=== PATIENT | male | born 1955 | race Caucasian/White ===

== ENCOUNTER 2016-09-20 10:47 | Inpatient (IN) ==
[~2016-09-20 10:47] MED LIST: Lidocaine -MPF 1% 5 ML AMPUL INFILT ONE; Naloxone 0.4 MG/ML INJ IVP PRN; Ondansetron 4 MG/2 ML VIAL IVP PRN
[2016-09-20] MEDS ORDERED: 0.9 % Sodium Chloride 1,000 ML IVC SCH (11:00)
[2016-09-20] MEDS ORDERED: *HR* HYDROmorphone (PF) 1 MG/ML SYRINGE IVP PRN (11:06)
[2016-09-20] MEDS ORDERED: Acetaminophen 325 MG TABLET PO PRN (11:06)
[2016-09-20] MEDS ORDERED: *HR* OxyCODONE/APAP 5/325 TABLET PO PRN (11:06)
[2016-09-20 11:53] LABS: Basophils % 0.6 %; Eosinophils # 0.1 K/mcL (0.0-0.6); Eosinophils % 2.1 %; Hematocrit 43.4 % (37.5-50.1); Hemoglobin 14.9 g/dL (12.9-16.9); Immature Granulocytes % 0.2 % (0-4); Lymphocytes # 1.3 K/mcL (0.6-4.6); Lymphocytes % 28.3 %; Mean Corpuscular HGB Conc 34.3 g/dL (31.6-35.5); Mean Corpuscular Hemoglobin 31.6 pg (28.0-33.3); Mean Corpuscular Volume 92.1 fL (83.0-100.0); Mean Platelet Volume 10.6 fL (9.4-12.4); Monocytes # 0.5 K/mcL (0.0-1.3); Monocytes % 11.4 %; Neutrophils # 2.7 K/mcL (1.6-8.9); Platelet Count 236 K/mcL (140-400); Red Blood Count 4.71 M/mcL (4.19-5.50); Red Cell Distribution Width 13.5 % (11.5-14.5); Segmented Neutrophils % 57.4 %
[2016-09-20 11:59] LABS: INR 1.1; Prothrombin Time 11.5 Seconds (9.4-12.1)
[2016-09-20 12:07] LABS: Alanine Aminotransferase 13 Units/L (0-55); Albumin 3.9 g/dL (3.5-5.0); Albumin/Globulin Ratio 1.2 (1.1-2.2); Alkaline Phosphatase 61 Units/L (38-126); Aspartate Amino Transferase 23 Units/L (5-34); BUN/Creatinine Ratio 6 (6-26); Bilirubin,Total 0.5 mg/dL (0.2-1.2); Calcium 9.5 mg/dL (8.6-10.8); Carbon Dioxide 26 mEq/L (19-29); Chloride 98 mEq/L (98-109); Globulin 3.2 g/dL (2.4-3.5); Glucose 104 mg/dL (70-99); Magnesium 2.1 mg/dL (1.6-2.6); Osmolality,Calculated 274 (280-300); Phosphorous 3.6 mg/dL (2.3-4.7); Potassium 4.7 mEq/L (3.5-4.5); Sodium 133 mEq/L (136-145); Total Protein 7.1 g/dL (6.0-8.3); eGFR For African Americans > 60 (> 60); eGFR For Non-African Americans > 60 (> 60)
[2016-09-20 12:08] LABS: Blood Urea Nitrogen 5 mg/dL (8-26)
[2016-09-20 12:38] LABS: Platelet Estimate Normal (Normal); Reactive Lymphocytes Present (Not Present)
[2016-09-20] MEDS ORDERED: D10% in Water 500 ML IVC PRN (13:06)
--- NOTE | 2016-09-20 14:23 | General Surg History&Physical ---
<Yoly Kendrick - Last Filed: 09/20/16 14:46> Date of Encounter: 09/20/16 Time of Encounter: 14:00 Assessment and Plan (1) Colonic stricture Current Visit: Yes Status: Acute The assessment and plan as outlined above was discussed with the patient and/or family members who expressed understanding and agreement. All questions were answered. Patient risks, benefits, alternatives, expected outcomes have been reviewed and he is in agreement to proceed with an open sigmoid colectomy and possible colostomy with Dr. Sanders and the next 24-48 hours. Bowel prep today- MiraLAX and Gatorade, Dulcolax, neomycin and erythromycin Clear liquid diet Nothing by mouth after midnight IV antibiotics- Cipro and Flagyl PICC line and TPN therapy initiated due to patient risk for malnutrition- he reports he has not eaten in over one week Total fluid rate with maintenance IV and TPN will be 100 mL's per hour Incentive spirometer every 1 hour while awake Repeat a.m. labs (2) Diverticular disease Current Visit: Yes Status: Acute The assessment and plan as outlined above was discussed with the patient and/or family members who expressed understanding and agreement. All questions were answered. Patient risks, benefits, alternatives, expected outcomes have been reviewed and he is in agreement to proceed with an open sigmoid colectomy and possible colostomy with Dr. Sanders and the next 24-48 hours. Bowel prep today- MiraLAX and Gatorade, Dulcolax, neomycin and erythromycin Clear liquid diet Nothing by mouth after midnight IV antibiotics- Cipro and Flagyl PICC line and TPN therapy initiated due to patient risk for malnutrition- he reports he has not eaten in over one week Total fluid rate with maintenance IV and TPN will be 100 mL's per hour Incentive spirometer every 1 hour while awake Repeat a.m. labs Qualifiers: Diverticulosis site: diverticulosis of large intestine Diverticulosis bleeding: diverticulosis without bleeding Qualified Code(s): K57.30 - Diverticulosis of large intestine without perforation or abscess without bleeding (3) GERD (gastroesophageal reflux disease) Current Visit: Yes Status: Chronic The assessment and plan as outlined above was discussed with the patient and/or family members who expressed understanding and agreement. All questions were answered. PPI therapy daily Qualifiers: Esophagitis presence: esophagitis presence not specified Qualified Code(s) : K21.9 - Gastro-esophageal reflux disease without esophagitis (4) Hypertension Current Visit: Yes Status: Chronic The assessment and plan as outlined above was discussed with the patient and/or family members who expressed understanding and agreement. All questions were answered. Resume home medication regimen We will continue to monitor and adjust as necessary Qualifiers: Hypertension type: essential hypertension Qualified Code(s): I10 - Essential (primary) hypertension (5) Restless leg syndrome Current Visit: Yes Status: Acute The assessment and plan as outlined above was discussed with the patient and/or family members who expressed understanding and agreement. All questions were answered. Resume Requip and Neurontin for symptom control (6) DVT prophylaxis Current Visit: Yes Status: Acute The assessment and plan as outlined above was discussed with the patient and/or family members who expressed understanding and agreement. All questions were answered. EPCDs to bilateral location release for DVT prophylaxis Ambulate hallways 3 times a day History of Present Illness Chief complaint: Abdominal pain HPI: Mr. Bateman is a 60 year old male with a past medical history significant for restless leg syndrome, GERD, hypertension, osteoarthritis, Hanson's esophagus, diverticular disease. He has been seen and evaluated by Dr. Sanders as an outpatient for diverticular disease. The patient was recently admitted to a hospital in [place] in July of this year for an episode of diverticulitis. He was discharged on oral antibiotics and then followed up with Dr. Sanders for surgical evaluation. He was evaluated in August of this year in the office and stated he would like to hold off on having surgery until Fall time due to his work schedule. He continued to be symptomatic with abdominal discomfort at his evaluation with Dr. Sanders. He was given oral antibiotics at that time ( Augmentin and Flagyl). The patient completed his antibiotics as instructed however he has continued to have persistent abdominal discomfort. He had a CT scan and complete and was found to have a suspected sigmoid stricture secondary to recurrent diverticulitis. The patient denies any nausea or vomiting. He reports decreased appetite and states that he has not even in 1 week. He states that he does not eat because it makes his pain in his abdomen worse. He has continued to drink liquids. He states his pain is located in his left lower quadrant. Denies any fevers or chills. He does admit to constipation. Denies any difficulty with urination. Denies any chest pain or shortness of breath. The patient has been admitted to the hospital for further workup and treatment for his colonic obstruction Past Med Surg Social Fam HX - Past Medical History Source: patient, old records reviewed Medical history: arthritis, GERD, hypertension, other (Hanson's esophagus, diverticular disease, restless leg syndrome) Psychiatric history: no psych history - Past Surgical History Surgical History: orthopedic, other (Left total shoulder replacements), other ( Ruptured disc lumbar repair in 1992 and 1995, hardware replacement and back, EGD and colonoscopy (last colonoscopy 2015)) - Social History Smoking Status: Former smoker (Quit 2 months ago) Smokeless Tobacco Status: No Alcohol use: occasionally Drug use: none Occupational status: employed Current living situation: Home - Independent Activity Level: Independent ambulation - Family History Mother Living Status: Still Living Father Living Status: Still Living Medications and Allergies metroNIDAZOLE [Flagyl] 500 mg PO TID #30 tablet 11/21/14 [Rx] Amoxicillin/Clavulanate [Augmentin] 875 mg PO BIDWM 09/20/16 [History] Gabapentin [Neurontin] 800 mg PO TID 09/20/16 [History] Lisinopril/Hydrochlorothiazide [Zestoretic 10-12.5 mg Tablet] 1 each PO DAILY [History] Omeprazole [PriLOSEC] 40 mg PO DAILY 09/20/16 [History] rOPINIRole [Requip] 1 mg PO TID 09/20/16 [History] Allergies No Known Allergies Allergy (Verified 09/20/16 11:34) Review of Systems All systems PM: reviewed and no additional remarkable complaints except as stated (in the HPI) All systems PM: A 10-system review of systems was performed and is negative for pertinent findings except as documented above in the HPI. General Surgery Exam Initial Vital Signs Temp Pulse Resp BP Pulse Ox 97.3 F L 64 16 133/88 96 09/20/16 10:52 09/20/16 10:52 09/20/16 10:52 09/20/16 10:52 09/20/16 10:52 - General physical appearance well developed, well nourished, no distress, no pain - Eyes PERRL, normal ocular movement - ENT normal mucosa, atraumatic, normocephalic - Neck trachea midline - Respiratory normal expansion, normal respiratory effort, clear to auscultation - Cardiovascular Cardiovascular exam: Present: RRR - Abdomen Abdomen general surgery: Present: bowel sounds present, soft, non tender - Neurologic Present: CN 2-12 grossly intact - Musculoskeletal Present: normal gait, normal posture - Psychiatric Psychiatric general surgery: Present: appropriate, oriented to person, oriented to place, oriented to time, speech is normal, memory intact Results - Labs 09/20/16 11:42 09/20/16 11:42 Abnormal lab results Reactive Lymphocytes Present (Not Present) A 09/20/16 11:42 Sodium 133 mEq/L (136-145) L 09/20/16 11:42 Potassium 4.7 mEq/L (3.5-4.5) H 09/20/16 11:42 BUN 5 mg/dL (8-26) L 09/20/16 11:42 Glucose 104 mg/dL (70-99) H 09/20/16 11:42 Calculated Osmolality 274 (280-300) L 09/20/16 11:42 Diabetes panel 09/20/16 Range/Units 11:42 Sodium 133 L (136-145) mEq/L Potassium 4.7 H (3.5-4.5) mEq/L Chloride 98 (98-109) mEq/L Carbon Dioxide 26 (19-29) mEq/L BUN 5 L (8-26) mg/dL Creatinine 0.82 (0.72-1.25) mg/dL Glucose 104 H (70-99) mg/dL Calcium 9.5 (8.6-10.8) mg/dL AST 23 (5-34) Units/L ALT 13 (0-55) Units/L Alkaline Phosphatase 61 (38-126) Units/L Albumin 3.9 (3.5-5.0) g/dL Calcium panel 09/20/16 Range/Units 11:42 Calcium 9.5 (8.6-10.8) mg/dL Phosphorus 3.6 (2.3-4.7) mg/dL Albumin 3.9 (3.5-5.0) g/dL Pituitary panel 09/20/16 Range/Units 11:42 Sodium 133 L (136-145) mEq/L Potassium 4.7 H (3.5-4.5) mEq/L Chloride 98 (98-109) mEq/L Carbon Dioxide 26 (19-29) mEq/L BUN 5 L (8-26) mg/dL Creatinine 0.82 (0.72-1.25) mg/dL Glucose 104 H (70-99) mg/dL Calcium 9.5 (8.6-10.8) mg/dL Adrenal panel 09/20/16 Range/Units 11:42 Sodium 133 L (136-145) mEq/L Potassium 4.7 H (3.5-4.5) mEq/L Chloride 98 (98-109) mEq/L Carbon Dioxide 26 (19-29) mEq/L BUN 5 L (8-26) mg/dL Creatinine 0.82 (0.72-1.25) mg/dL Glucose 104 H (70-99) mg/dL Calcium 9.5 (8.6-10.8) mg/dL Total Bilirubin 0.5 (0.2-1.2) mg/dL AST 23 (5-34) Units/L ALT 13 (0-55) Units/L Alkaline Phosphatase 61 (38-126) Units/L Albumin 3.9 (3.5-5.0) g/dL All other labs normal. - Attending Attestation For this encounter, I have reviewed the KNEE BOLTER or PA documentation, treatment plan, and medical decision making; and I have had face to face time with this patient. <Frances Sanders - Last Filed: 09/21/16 19:23> Date of Encounter: 09/20/16 Assessment and Plan (1) Colonic stricture Current Visit: Yes Status: Acute The assessment and plan as outlined above was discussed with the patient and/or family members who expressed understanding and agreement. All questions were answered. (2) DVT prophylaxis Current Visit: Yes Status: Acute The assessment and plan as outlined above was discussed with the patient and/or family members who expressed understanding and agreement. All questions were answered. (3) Diverticular disease Current Visit: Yes Status: Acute The assessment and plan as outlined above was discussed with the patient and/or family members who expressed understanding and agreement. All questions were answered. Qualifiers: Diverticulosis site: diverticulosis of large intestine Diverticulosis bleeding: diverticulosis without bleeding Qualified Code(s): K57.30 - Diverticulosis of large intestine without perforation or abscess without bleeding (4) Restless leg syndrome Current Visit: Yes Status: Acute The assessment and plan as outlined above was discussed with the patient and/or family members who expressed understanding and agreement. All questions were answered. (5) GERD (gastroesophageal reflux disease) Current Visit: Yes Status: Chronic The assessment and plan as outlined above was discussed with the patient and/or family members who expressed understanding and agreement. All questions were answered. Qualifiers: Esophagitis presence: esophagitis presence not specified Qualified Code(s) : K21.9 - Gastro-esophageal reflux disease without esophagitis (6) Hypertension Current Visit: Yes Status: Chronic The assessment and plan as outlined above was discussed with the patient and/or family members who expressed understanding and agreement. All questions were answered. Qualifiers: Hypertension type: essential hypertension Qualified Code(s): I10 - Essential (primary) hypertension History of Present Illness HPI: Mr. Bateman is a 60 year old male with recurrent diverticulitis and currently as sigmoid stricture. He is symptomatic from this in that he has LLQ pain whenever he tries to eat solid food. His stool output has thinned and decrased. No dysuria, fevers, chills or night sweats. Review of Systems All systems PM: reviewed and no additional remarkable complaints except as stated All systems PM: A 10-system review of systems was performed and is negative for pertinent findings except as documented above in the HPI. General Surgery Exam Initial Vital Signs Temp Pulse Resp BP Pulse Ox 97.3 F L 64 16 133/88 96 09/20/16 10:52 09/20/16 10:52 09/20/16 10:52 09/20/16 10:52 09/20/16 10:52 - General physical appearance well developed, well nourished, no distress, no pain - Eyes PERRL, normal ocular movement - ENT normocephalic - Neck trachea midline - Respiratory normal expansion, clear to auscultation - Cardiovascular Cardiovascular exam: Present: RRR, no murmurs/rubs/gallops - Abdomen Abdomen general surgery: Present: bowel sounds present, soft, non tender. Absent: distended, guarding, rebound - Integumentary Integumentary general surgery: Present: warm and dry, no abnormal pigmentation - Neurologic Present: CN 2-12 grossly intact - Musculoskeletal Present: normal gait, normal posture - Psychiatric Psychiatric general surgery: Present: A&Ox3, speech is normal Results - Labs 09/20/16 11:42 09/21/16 04:45 Abnormal lab results Reactive Lymphocytes Present (Not Present) A 09/20/16 11:42 Sodium 131 mEq/L (136-145) L 09/21/16 04:45 BUN 6 mg/dL (8-26) L 09/21/16 04:45 Glucose 120 mg/dL (70-99) H 09/21/16 04:45 POC Glucose 185 (58-89) H 09/21/16 17:10 Calculated Osmolality 271 (280-300) L 09/21/16 04:45 Diabetes panel 09/21/16 Range/Units 04:45 Sodium 131 L (136-145) mEq/L Potassium 3.7 D (3.5-4.5) mEq/L Chloride 101 (98-109) mEq/L Carbon Dioxide 24 (19-29) mEq/L BUN 6 L (8-26) mg/dL Creatinine 0.73 (0.72-1.25) mg/dL Glucose 120 H (70-99) mg/dL Calcium 8.7 (8.6-10.8) mg/dL Triglycerides 85 (< 150) mg/dL Calcium panel 09/21/16 Range/Units 04:45 Calcium 8.7 (8.6-10.8) mg/dL Phosphorus 3.5 (2.3-4.7) mg/dL Pituitary panel 09/21/16 Range/Units 04:45 Sodium 131 L (136-145) mEq/L Potassium 3.7 D (3.5-4.5) mEq/L Chloride 101 (98-109) mEq/L Carbon Dioxide 24 (19-29) mEq/L BUN 6 L (8-26) mg/dL Creatinine 0.73 (0.72-1.25) mg/dL Glucose 120 H (70-99) mg/dL Calcium 8.7 (8.6-10.8) mg/dL Adrenal panel 09/21/16 Range/Units 04:45 Sodium 131 L (136-145) mEq/L Potassium 3.7 D (3.5-4.5) mEq/L Chloride 101 (98-109) mEq/L Carbon Dioxide 24 (19-29) mEq/L BUN 6 L (8-26) mg/dL Creatinine 0.73 (0.72-1.25) mg/dL Glucose 120 H (70-99) mg/dL Calcium 8.7 (8.6-10.8) mg/dL All other labs normal. - Imaging CT scan - abdomen: report reviewed, image reviewed CT scan - pelvis: report reviewed, image reviewed - Attending Attestation I have personally performed a face to face evaluation on this patient. I have reviewed and agree with the care plan. History and Exam by me shows: sigmoid stricture
[2016-09-20] MEDS: rOPINIRole 1 MG TABLET PO SCH ×2 (15:33→20:57)
[2016-09-20] MEDS: Gabapentin 400 MG CAPSULE PO SCH ×2 (15:33→20:57)
[2016-09-20] MEDS: MetroNIDAZOLE 500 MG/100 ML 500 MG/100 ML BAG IVPB SCH (15:34)
[2016-09-20] MEDS ORDERED: Clinimix E 5%-15% SOLUTION 2,000 ML with MVI, adult with vitamin K 10 ML IVC SCH (17:00)
[2016-09-20] MEDS ORDERED: Polyethylene Glycol 3350 255 GM POWDER PO ONE (17:00)
[2016-09-21] MEDS: MetroNIDAZOLE 500 MG/100 ML 500 MG/100 ML BAG IVPB SCH ×2 (00:15→08:14)
[2016-09-21 05:50] LABS: Prothrombin Time 11.1 Seconds (9.4-12.1)
[2016-09-21 06:01] LABS: BUN/Creatinine Ratio 8 (6-26); Blood Urea Nitrogen 6 mg/dL (8-26); Calcium 8.7 mg/dL (8.6-10.8); Carbon Dioxide 24 mEq/L (19-29); Chloride 101 mEq/L (98-109); Glucose 120 mg/dL (70-99); Magnesium 1.8 mg/dL (1.6-2.6); Osmolality,Calculated 271 (280-300); Phosphorous 3.5 mg/dL (2.3-4.7); Potassium 3.7 mEq/L (3.5-4.5); Sodium 131 mEq/L (136-145); Triglycerides 85 mg/dL (< 150); eGFR For African Americans > 60 (> 60); eGFR For Non-African Americans > 60 (> 60)
[2016-09-21] MEDS: Gabapentin 400 MG CAPSULE PO SCH (08:14)
[2016-09-21] MEDS: rOPINIRole 1 MG TABLET PO SCH (08:14)
[2016-09-21] MEDS ORDERED: Pantoprazole 40 MG VIAL IVP SCH (09:00)
[2016-09-21] MEDS ORDERED: *HR* Succinylcholine 200 MG/10 ML VIAL IVP ONE (09:16)
[2016-09-21] MEDS ORDERED: *HR* FentaNYL (PF) 100 MCG/2 ML VIAL ONE (09:16)
[2016-09-21] MEDS ORDERED: *HR* Propofol 200 MG/20 ML VIAL IVP ONE (09:16)
[2016-09-21] MEDS ORDERED: *HR* Midazolam HCl 2 MG/2 ML VIAL ONE (09:16)
[2016-09-21] MEDS ORDERED: Lidocaine -MPF 2% 2 ML VIAL ONE (09:16)
[2016-09-21] MEDS ORDERED: CefOXitin 2,000 MG VIAL IVPB ONE (09:23)
--- NOTE | 2016-09-21 09:29 | Anesthesia Evaluation PreOp ---
Date of Encounter: 09/21/16 Time of Encounter: 09:25 - Past History Planned Operation: Sigmoid Colectomy Cardiac History: HTN (maintained on Lisinopril/Hctz) Pulmonary History: Former smoker (1ppd x 40 yrs, "Quit 2 months ago") HSE ADVISOR History: Other (Chronic Pain/LLE foot drop & Neuropathy maintained on GAbapentin. RLS maintained on Requiq.) Other Medical History: GERD (maintained on Prilosec), Other (Diverticular dz, Colonic Stricture) Anesthesia History: No Prior Anesthetic Complications, Past Anesthesia (L-Total Shoulder, Lumbar spine surgery w/ Hardware x2 re: ruptured discs,) Alcohol Use: occasionally Drug use: none Medications and Allergies metroNIDAZOLE [Flagyl] 500 mg PO TID #30 tablet 11/21/14 [Rx] Amoxicillin/Clavulanate [Augmentin] 875 mg PO BIDWM 09/20/16 [History] Gabapentin [Neurontin] 800 mg PO TID 09/20/16 [History] Lisinopril/Hydrochlorothiazide [Zestoretic 10-12.5 mg Tablet] 1 each PO DAILY [History] Omeprazole [PriLOSEC] 40 mg PO DAILY 09/20/16 [History] rOPINIRole [Requip] 1 mg PO TID 09/20/16 [History] Allergies No Known Allergies Allergy (Verified 09/20/16 11:34) - Meds/Allergy Pre-op Review Medications Reviewed: Yes Allergies Reviewed: Yes Beta Blockers on Current Med List: No Anesthesia Results - Labs 09/20/16 11:42 09/21/16 04:45 Laboratory Results - Imaging EKG: image reviewed (58bpm SB) Anesthesia Exam Vital Signs Temp Pulse Resp BP Pulse Ox 09/21/16 05:00 97.5 F L 66 16 115/75 96 09/20/16 23:27 98.1 F 81 16 89/59 95 09/20/16 20:02 97.6 F 73 16 119/80 96 09/20/16 15:08 97.5 F L 47 16 152/92 99 09/20/16 10:52 97.3 F L 64 16 133/88 96 Intake and Output 09/20/16 09/21/16 09/21/16 23:59 07:59 15:59 Intake Total 444 / 444 800 / 800 0 / 0 Output Total 1650 / 1650 Balance -1206 / -1206 800 / 800 0 / 0 Intake: IV Fluids 444 / 444 800 / 800 0.9 % Sodium Chloride 1, 144 / 144 700 / 700 000 ML @ 100 mls/hr IVC . Q10H [facility] Rx#:[id number] Cipro Premix 400 MG/200 200 / 200 ML 400 mg In 200 ml @ 200 mls/hr IVPB Q12HR [facility] Rx #:[id number] Flagyl Premix 500 MG/100 100 / 100 100 / 100 ML 500 mg In 100 ml @ 100 mls/hr IVPB Q8HR [facility] Rx# :[id number] Oral 0 / 0 0 / 0 0 / 0 Output: Urine 100 / 100 Stool 1550 / 1550 Other: Meal NPO Percent of Meal Consumed 0% Stool Consistency liquid Stool Color Yellow # Voids 1 1 # Bowel Movements 1 Weight 92.3 kg Blood Glucose* 114 140 Patient Weight 09/21/16 23:59 Weight 92.3 kg Height: 6' Weight: 203# NPO (# of Hours): MNoc - HEENT Pupil (Motor): Pupils equal, EOMI Mallampati: III Teeth: Normal Oral Opening: Greater than 3 - HSE ADVISOR LOC: Oriented HSE ADVISOR Motor: Normal RUE, Normal LUE, Normal RLE, Normal Face, Deficit LLE (LLE foot drop) HSE ADVISOR Sensory: Normal: RUE, LUE, RLE, Face, Deficit: LLE (neuropathy L-foot [pain & tingling]) - Cardiac Rhythm: Regular Murmur: None - Pulmonary Breath Sounds: bilateral Clear Respiratory Effort: Symmetrical Anesthesia Assess/Plan ASA Score: 2 Modified Gifty Scale for Level of Consciousness: Cooperative, oriented, and tranquil Anesthetic Plan: General Monitoring Plan: Standard Monitors Recovery Plan: PACU Anes Supervising Prov Stmt: Pt seen/evlauated, R&B Discussed, question answered and consent obtained. Ralph Downey MD
[2016-09-21] MEDS ORDERED: EPHEDrine 50 MG/ML VIAL ONE (10:10)
[2016-09-21] MEDS ORDERED: *HR* Rocuronium Bromide 50 MG/5 ML VIAL ONE (10:16)
[2016-09-21] MEDS ORDERED: Acetaminophen IV 1,000 MG/100 ML INFUS..BTL ONE (10:23)
[2016-09-21] MEDS ORDERED: *HR* HYDROmorphone 2 MG/ML SYRINGE ONE ×2 (10:46→12:17)
[2016-09-21] MEDS ORDERED: CloNIDine Patch 0.1 MG PATCH (WEEKLY) TD ONE (11:07)
[2016-09-21] MEDS ORDERED: Dexamethasone 4 MG/ML VIAL ONE (11:51)
[2016-09-21] MEDS ORDERED: Ondansetron 4 MG/2 ML VIAL ONE (11:51)
[2016-09-21] MEDS ORDERED: Neostigmine Methylsulfate 3 MG/3 ML SYRINGE ONE (12:44)
--- NOTE | 2016-09-21 13:02 | Operative Note ---
Date of procedure: 09/21/16 Pre-op diagnosis: recurrent diverticulitis, sigmoid stricture Post-op diagnosis: same Procedure: Open sigmoidectomy, takedown of splenic flexure, incidental appendectomy Complications: none immediate Anesthesia: SUKHDEEP Surgeon: Frances Sanders Hydroelectric Mechanic: Jazmyn Arreguin Estimated blood loss (cc): 150 IV fluids (cc): 2,300 Urine output (cc): 300 Specimen: sigmoid colon, appendix, anastomotic rings Condition: stable Disposition: PACU Procedure in Detail: Patient was brought to the operating suite and placed supine on the operating table. Sign in was performed and everyone was in agreement. Anesthesia was induced and patient was endotracheally intubated by anesthesia without incident. His abdomen was shaved. Domingo catheter was placed by circulating nurse and an NG tube was placed by anesthesia. His legs were placed in yellowfin stirrups. His abdomen was prepped and draped in usual sterile fashion as well as perineum. Timeout was performed again everyone was in agreement. A midline incision through the skin into the subcutaneous tissues made with 15 blade. We dissected through the subcutaneous tissue to the anterior abdominal wall linea alba fascia with of Bovie. Kyle's were placed on either side of the fascia for retraction the abdomen was entered with the Bovie. Bookwalter was placed for retraction. Small bowel was placed to the right abdomen and kept in place by wet towel and malleable. The sigmoid was extremely redundant and adherent to the left lateral abdominal wall. Palpating the sigmoid the area of stricture was identified. Using the Bovie the white line of Toldt was taken down at the left lateral abdominal wall in a distal to proximal direction up towards the splenic flexure. The sigmoid that was adherent to the left lateral abdominal wall was taken down with the Bovie. An area in the proximal rectum was identified and chosen for the area of transection. An opening in the mesial rectum was made with the Bovie and using digital blunt dissection. The rectum was transected with a contour stapler using a blue load. An area in the left colon proximal to the left colic vessels was chosen for transection. An opening in the mesocolon was made with the Bovie beneath the colon. The colon was then transected with a linear REBEKAH- 75 stapler using a blue load. The mesentery was dissected as well as the left colic vessels with the impact LigaSure. The specimen was placed off to the back table with a silk stitch marking the distal end using gentle blunt dissection and the Bovie the splenic flexure was taken down all the way just distal to the middle colic vessels. The mesentery was up to the middle colic vessels with the impact LigaSure. The left colon reached well into the pelvis. Babcocks were placed on the left colon staple line and a disposable pursestring stapler was applied. The staple line was transected with a 10 blade. A 29 EEA stapler was chosen for the colorectal anastomosis. The anvil was placed in the left colon and the Prolene stitch from the EEA was tied. A small amount of fat around the left colon distal end was taken out the Bovie. The rectal stump was dilated with the anal dilators. The EEA stapler was placed into the rectum and the colon rectal anastomosis was created. The left and right lateral and anterior staple line was buttressed with 3-0 interrupted Lembert stitches. Patient was placed in reverse Trendelenburg position and the pelvis filled with sterile saline. 30 mL balloon catheter was placed in the anus and the balloon was insufflated with 30 mL of sterile saline. The left colon proximal to the anastomosis was clamped with a noncrushing curved bowel clamp. The catheter was then insufflated with 140 mL of air and rocked. There were no air bubbles or leak present. The saline was suctioned free from the abdomen. The cecum was identified and the patient's appendix was located. The appendix was grasped with a Wendi and an opening in the mesoappendix was made with a hemostat. The appendix was transected off the base of the cecum with a linear REBEKAH-75 stapler using a blue load. The mesoappendix was transected with the impact LigaSure. The specimen was placed off to the back table for pathology. The abdomen was copiously irrigated with several liters of sterile saline. A 10 mm ROSALVA drain was placed through the right lower quadrant after first incising the skin with the Bovie and the drain was placed anterior to the rectum distal to the anastomosis. The ROSALVA drain was secured to the skin with a 2-0 silk stitch. The omentum was draped back over the small bowel and placed down into the pelvis over the anastomosis. Kyle's were placed in either side of the fascia for retraction. A large piece of Seprafilm was placed in the abdominal cavity. The fascia was closed with 2 separate #1 non-looped PDS stitches running stitches in the middle. The subcutaneous tissue was copiously irrigated with sterile saline. The subcutaneous tissue was reapproximated with 3-0 Vicryl interrupted stitches. The skin was closed with cristo. 4 x 4 gauze and Mediport tape were applied as a dressing. Domingo catheter and NG tube remained with the patient. All lap and instrument counts are correct at the end of the case. Patient tolerated the procedure well and was awoken by anesthesia in the operating room and taken to PACU in stable condition.
--- NOTE | 2016-09-21 14:01 | Anesthesia Evaluation Post Op ---
Date of Encounter: 09/21/16 Time of Encounter: 14:00 - Vital Signs Vital Signs: Vital Signs/O2 Sat/Glucose, Most Current Temp Pulse Resp BP Pulse Ox 09/21/16 13:42 97.9 F 86 12 130/96 98 09/21/16 13:32 97.9 F 80 8 139/98 100 09/21/16 13:22 78 8 142/97 100 09/21/16 13:12 75 8 139/103 100 09/21/16 13:02 97.9 F 76 8 127/97 100 - Lungs Lungs: Clear Ascult./Percussion - Airway Airway: Non-obstructed - Cardiovascular Regular Rate - Mental Status Mental Status: Alert & Oriented, Answers Appropriately - Pain Pain Scale: 1 Pain Scale used: Bertin (Faces) (1) - Nausea Vomiting Nausea Vomiting: Not Present - Hydration Hydration: NPO, Domingo catheter - Discharge PostOp Status: Transfer Patient to floor Anes Supervising Prov Stmt: Pt seen/evaluated, VSS and pt has met criteria for discharge to floor. - MD Nasreen
[2016-09-21] MEDS ORDERED: Clinimix E 5%-15% SOLUTION 2,000 ML with MVI, adult with vitamin K 10 ML IVC SCH ×3 (14:02→17:00)
[2016-09-21] MEDS ORDERED: Ondansetron 4 MG/2 ML VIAL IVP PRN (14:02)
[2016-09-21] MEDS ORDERED: Naloxone 0.4 MG/ML INJ IVP PRN (14:02)
[2016-09-21] MEDS: *HR* HYDROmorphone (PF) 1 MG/ML SYRINGE IVP PRN ×4 (14:14→23:59)
[2016-09-21] MEDS: 0.9 % Sodium Chloride 1,000 ML IVC SCH ×2 (14:15→23:59)
[2016-09-21] MEDS: *HR* Metoprolol 5 MG/5 ML VIAL IVP SCH ×2 (17:30→23:59)
[2016-09-22] MEDS: *HR* HYDROmorphone (PF) 1 MG/ML SYRINGE IVP PRN ×6 (04:20→23:09)
[2016-09-22 04:35] LABS: Basophils % 0.1 %; Hematocrit 35.7 % (37.5-50.1); Immature Granulocytes % 0.4 % (0-4); Lymphocytes # 0.8 K/mcL (0.6-4.6); Lymphocytes % 5.6 %; Mean Corpuscular HGB Conc 34.7 g/dL (31.6-35.5); Mean Corpuscular Hemoglobin 32.3 pg (28.0-33.3); Mean Platelet Volume 11.4 fL (9.4-12.4); Monocytes # 1.3 K/mcL (0.0-1.3); Monocytes % 9.3 %; Platelet Count 177 K/mcL (140-400); Red Blood Count 3.84 M/mcL (4.19-5.50); Red Cell Distribution Width 13.6 % (11.5-14.5); Segmented Neutrophils % 84.6 %
[2016-09-22 04:40] LABS: Hemoglobin 12.4 g/dL (12.9-16.9); Neutrophils # 11.8 K/mcL (1.6-8.9)
[2016-09-22 04:51] LABS: BUN/Creatinine Ratio 16 (6-26); Blood Urea Nitrogen 11 mg/dL (8-26); Calcium 8.1 mg/dL (8.6-10.8); Carbon Dioxide 23 mEq/L (19-29); Chloride 104 mEq/L (98-109); Glucose 145 mg/dL (70-99); Magnesium 1.6 mg/dL (1.6-2.6); Osmolality,Calculated 276 (280-300); Phosphorous 2.4 mg/dL (2.3-4.7); Potassium 4.1 mEq/L (3.5-4.5); Sodium 132 mEq/L (136-145); eGFR For African Americans > 60 (> 60); eGFR For Non-African Americans > 60 (> 60)
[2016-09-22] MEDS: *HR* Metoprolol 5 MG/5 ML VIAL IVP SCH ×4 (05:52→23:09)
[2016-09-22] MEDS: Pantoprazole 40 MG VIAL IVP SCH (07:46)
--- NOTE | 2016-09-22 10:58 | General Surgery Progress Note ---
Date of Encounter: 09/22/16 Time of Encounter: 10:58 - Assessment and Plan (1) Colonic stricture Current Visit: Yes Status: Resolved (2) DVT prophylaxis Current Visit: Yes Status: Acute heparin sq (3) Diverticular disease Current Visit: Yes Status: Resolved Qualifiers: Diverticulosis site: diverticulosis of large intestine Diverticulosis bleeding: diverticulosis without bleeding Qualified Code(s): K57.30 - Diverticulosis of large intestine without perforation or abscess without bleeding (4) Restless leg syndrome Current Visit: Yes Status: Acute holding home medication until can tolerate po meds (5) GERD (gastroesophageal reflux disease) Current Visit: Yes Status: Chronic PPI therapy Qualifiers: Esophagitis presence: esophagitis presence not specified Qualified Code(s) : K21.9 - Gastro-esophageal reflux disease without esophagitis (6) Hypertension Current Visit: Yes Status: Chronic normotensive, monitor Qualifiers: Hypertension type: essential hypertension Qualified Code(s): I10 - Essential (primary) hypertension (7) History of open sigmoidectomy Current Visit: Yes Status: Acute pod 1 open sigmoidectomy ROSALVA drain serosang no flatus or bm, faint bowel sounds await return of bowel function elevated wbc a function of surgery continue npo, ivf, TPN prn pain control, added ofirmev OOB to chair aggressive pulmonary toilet will dc ronda tomorrow am Subjective Patient reports: no new complaints, still having pain, no flatus, no bowel movement, afebrile Objective Vital Signs - Last 8 Hours Temp Pulse Resp BP Pulse Ox 09/22/16 08:00 98.1 F 59 16 111/76 94 09/22/16 07:55 94 09/22/16 04:05 98.0 F 63 14 121/77 94 Intake and Output 09/21/16 09/22/16 09/22/16 23:59 07:59 15:59 Intake Total 1251.1 / 1251.1 1252 / 1252 Output Total 565 / 565 175 / 175 Balance 686.1 / 686.1 1077 / 1077 Intake: IV Fluids 1251.1 / 1251.1 1252 / 1252 0.9 % Sodium Chloride 1, 1031 / 1031 300 / 300 000 ML @ 100 mls/hr IVC . Q10H [facility] Rx#:[id number] Clinimix E 5%-15% 176 / 176 702 / 702 SOLUTION 2,000 ML @ 83.3 mls/hr IVC .Q24H [facility] with M.v.i. Adult 10 ml Rx#: [id number] Intralipid 20% 250 ML @ 44.1 / 44.1 250 / 250 21 mls/hr IVPB DAILY@1700 [facility] Rx#:[id number] Oral 0 / 0 Output: Catheter 450 / 450 0 / 0 Gastric Drainage 175 / 175 Wound Drainage 115 / 115 0 / 0 RLQ 115 / 115 0 / 0 Other: Meal NPO Percent of Meal Consumed 0% Weight 92.62 kg Blood Glucose* 223 131 Patient Weight 09/22/16 23:59 Weight 92.62 kg - General physical appearance well developed, well nourished, no distress - Eyes PERRL, normal ocular movement - ENT normal mucosa, atraumatic - Neck Neck exam: trachea midline - Respiratory normal expansion, clear to auscultation - Cardiovascular Cardiovascular exam: Present: RRR - Abdomen Abdomen: Present: bowel sounds present (faint), soft, tender (appropriate post op tenderness) - Incision Incision: Present: clean and dry, intact - Genitourinary other (bond in place, clear yellow urine) - Integumentary no rash - Neurologic CN 2-12 grossly intact - Musculoskeletal normal posture - Psychiatric oriented to time, oriented to person, oriented to place, memory intact - Labs 09/22/16 04:00 09/22/16 04:00 Short CBC 09/22/16 Range/Units 04:00 WBC 13.9 H D (4.3-11.1) K/mcL Hgb 12.4 L D (12.9-16.9) g/dL Hct 35.7 L (37.5-50.1) % Plt Count 177 (140-400) K/mcL Neutrophils # 11.8 H (1.6-8.9) K/mcL BMP 09/22/16 Range/Units 04:00 Sodium 132 L (136-145) mEq/L Potassium 4.1 (3.5-4.5) mEq/L Chloride 104 (98-109) mEq/L Carbon Dioxide 23 (19-29) mEq/L BUN 11 (8-26) mg/dL Creatinine 0.68 L (0.72-1.25) mg/dL Glucose 145 H (70-99) mg/dL Calcium 8.1 L (8.6-10.8) mg/dL Vital Signs Temp Pulse Resp BP Pulse Ox 09/22/16 08:00 98.1 F 59 16 111/76 94 09/22/16 07:55 94 09/22/16 04:05 98.0 F 63 14 121/77 94 09/21/16 23:58 97.7 F 68 17 120/75 95 09/21/16 19:00 97.8 F 73 18 115/79 96 09/21/16 17:34 98.2 F 88 12 110/75 97 09/21/16 16:10 98.2 F 88 12 110/81 98 09/21/16 15:00 97.3 F L 83 12 121/86 97 09/21/16 14:30 97.3 F L 76 14 117/81 92 09/21/16 14:06 78 12 133/86 95 09/21/16 13:52 97.9 F 88 12 135/94 95 09/21/16 13:42 97.9 F 86 12 130/96 98 09/21/16 13:32 97.9 F 80 8 139/98 100 09/21/16 13:22 78 8 142/97 100 09/21/16 13:12 75 8 139/103 100 09/21/16 13:02 97.9 F 76 8 127/97 100 Intake and Output 09/21/16 09/22/16 09/22/16 23:59 07:59 15:59 Intake Total 1251.1 / 1251.1 1252 / 1252 Output Total 565 / 565 175 / 175 Balance 686.1 / 686.1 1077 / 1077 Intake: IV Fluids 1251.1 / 1251.1 1252 / 1252 0.9 % Sodium Chloride 1, 1031 / 1031 300 / 300 000 ML @ 100 mls/hr IVC . Q10H [facility] Rx#:[id number] Clinimix E 5%-15% 176 / 176 702 / 702 SOLUTION 2,000 ML @ 83.3 mls/hr IVC .Q24H [facility] with M.v.i. Adult 10 ml Rx#: [id number] Intralipid 20% 250 ML @ 44.1 / 44.1 250 / 250 21 mls/hr IVPB DAILY@1700 [facility] Rx#:[id number] Oral 0 / 0 Output: Catheter 450 / 450 0 / 0 Gastric Drainage 175 / 175 Wound Drainage 115 / 115 0 / 0 RLQ 115 / 115 0 / 0 Other: Meal NPO Percent of Meal Consumed 0% Weight 92.62 kg Blood Glucose* 223 131 Patient Weight 09/22/16 23:59 Weight 92.62 kg - VTE Documentation of Mechanical Device: Intermittent pneumatic compression device Consult Discharge Plan - Plan Referrals: Jeff Goff DO [Primary Care Provider] -
[2016-09-22] MEDS: 0.9 % Sodium Chloride 1,000 ML IVC SCH ×2 (11:50→20:31)
[2016-09-22] MEDS ORDERED: Acetaminophen IV 1,000 MG/100 ML INFUS..BTL IVPB SCH (16:00)
[2016-09-22] MEDS ORDERED: Clinimix E 5%-15% SOLUTION 2,000 ML with MVI, adult with vitamin K 10 ML IVC SCH (17:00)
[2016-09-22] MEDS: *HR* Heparin 5,000 UNIT/ML VIAL SQ SCH (18:03)
--- NOTE | 2016-09-22 18:07 | Electrocardiograph Report ---
[place] [address] Test Date: 2016-09-20 Pat Name: Nixon Bateman Department: 115 Room: 3A52 Gender: M Pulverizer Feeder: : [id number] Requested By: Yoly Kendrick Order Number: [id number] Reading MD: Bernardo Greer MD Measurements Intervals [place] Rate: 58 P: 102 LA: 171 QRS: 34 QRSD: 95 T: 67 QT: 420 QTc: 418 Interpretive Statements SINUS BRADYCARDIA NORMAL SINUS RHYTHM Electronically Signed On 09-22-2016 18:06:03 EDT by Bernardo Greer MD
[2016-09-23] MEDS: Acetaminophen IV 1,000 MG/100 ML INFUS..BTL IVPB SCH ×4 (00:47→23:58)
[2016-09-23] MEDS: *HR* HYDROmorphone (PF) 1 MG/ML SYRINGE IVP PRN ×7 (03:08→21:19)
[2016-09-23] MEDS: *HR* Metoprolol 5 MG/5 ML VIAL IVP SCH ×5 (05:50→23:47)
[2016-09-23] MEDS: *HR* Heparin 5,000 UNIT/ML VIAL SQ SCH ×2 (05:50→17:38)
[2016-09-23 06:14] LABS: Basophils % 0.3 %; Eosinophils % 0.3 %; Hematocrit 32.1 % (37.5-50.1); Immature Granulocytes % 0.6 % (0-4); Lymphocytes # 1.6 K/mcL (0.6-4.6); Mean Corpuscular HGB Conc 34.3 g/dL (31.6-35.5); Mean Corpuscular Hemoglobin 32.2 pg (28.0-33.3); Mean Corpuscular Volume 93.9 fL (83.0-100.0); Monocytes # 0.9 K/mcL (0.0-1.3); Monocytes % 10.9 %; Platelet Count 150 K/mcL (140-400); Red Blood Count 3.42 M/mcL (4.19-5.50); Red Cell Distribution Width 13.9 % (11.5-14.5); Segmented Neutrophils % 69.9 %
[2016-09-23 06:28] LABS: BUN/Creatinine Ratio 23 (6-26); Blood Urea Nitrogen 14 mg/dL (8-26); Calcium 7.9 mg/dL (8.6-10.8); Carbon Dioxide 27 mEq/L (19-29); Chloride 103 mEq/L (98-109); Glucose 89 mg/dL (70-99); Magnesium 1.4 mg/dL (1.6-2.6); Osmolality,Calculated 276 (280-300); Phosphorous 2.9 mg/dL (2.3-4.7); Potassium 3.6 mEq/L (3.5-4.5); Sodium 133 mEq/L (136-145); eGFR For African Americans > 60 (> 60); eGFR For Non-African Americans > 60 (> 60)
[2016-09-23] MEDS ORDERED: Magnesium Sulfate 2 GM in D5% in Water 100 ML IVPB ONE (08:10)
[2016-09-23] MEDS: Pantoprazole 40 MG VIAL IVP SCH (08:30)
[2016-09-23] MEDS ORDERED: D10% in Water 500 ML IVC PRN (10:29)
--- NOTE | 2016-09-23 13:40 | General Surgery Progress Note ---
<Adin Perales - Last Filed: 09/23/16 14:46> Date of Encounter: 09/23/16 Time of Encounter: 09:30 - Assessment and Plan (1) Colonic stricture Current Visit: Yes Status: Resolved (2) Diverticular disease Current Visit: Yes Status: Resolved Qualifiers: Diverticulosis site: diverticulosis of large intestine Diverticulosis bleeding: diverticulosis without bleeding Qualified Code(s): K57.30 - Diverticulosis of large intestine without perforation or abscess without bleeding (3) DVT prophylaxis Current Visit: Yes Status: Acute Continue SubQ Heparin (4) History of open sigmoidectomy Current Visit: Yes Status: Acute POD #2 Patient has not yet passed flatus or BM Remain NPO, pain control, encouraged OOB and incentive spirometer Will remove NG tube and start diet after bowel recovers Continue IVF and TPN Subjective Patient reports: pain is less, no flatus, no bowel movement, afebrile Narrative: Patient states that he has no appetite as of yet Objective Vital Signs - Last 8 Hours Temp Pulse Resp BP Pulse Ox 09/23/16 11:04 98.0 F 74 12 125/76 92 09/23/16 08:20 98.1 F 77 16 149/88 93 Intake and Output 09/22/16 09/23/16 09/23/16 23:59 07:59 15:59 Intake Total 1453 / 1453 2106 / 2106 100 / 100 Output Total 1600 / 1600 1050 / 1050 270 / 270 Balance -147 / -147 1056 / 1056 -170 / -170 Intake: IV Fluids 1453 / 1453 2106 / 2106 100 / 100 0.9 % Sodium Chloride 1, 1000 / 1000 1000 / 1000 000 ML @ 100 mls/hr IVC . Q10H [facility] Rx#:[id number] Clinimix E 5%-15% 288 / 288 756 / 756 SOLUTION 2,000 ML @ 83.3 mls/hr IVC .Q24H [facility] with M.v.i. Adult 10 ml Rx#: [id number] Ofirmev 1,000 mg/100 ml 1 100 / 100 100 / 100 100 / 100 ,000 mg In 100 ml @ 400 mls/hr IVPB Q8HR [facility] Rx#: [id number] Intralipid 20% 250 ML @ 65 / 65 250 / 250 21 mls/hr IVPB DAILY@1700 [facility] Rx#:[id number] Oral 0 / 0 Output: Catheter 550 / 550 400 / 400 250 / 250 Gastric Drainage 1000 / 1000 650 / 650 Wound Drainage 50 / 50 20 / 20 RLQ 50 / 50 20 / 20 Other: Meal NPO NPO Percent of Meal Consumed 0% Weight 93.4 kg Blood Glucose* 107 115 126 Patient Weight 09/23/16 23:59 Weight 93.4 kg - General physical appearance well developed, well nourished, no distress - Eyes normal ocular movement - ENT atraumatic, normocephalic - Neck Neck exam: trachea midline - Respiratory normal expansion, normal respiratory effort - Cardiovascular Cardiovascular exam: Present: RRR - Abdomen Abdomen: Present: bowel sounds present, soft, tender (expected post-op tenderness) - Incision Incision: Present: draining (little serosanguinous fluid in drain) - Musculoskeletal normal posture - Psychiatric speech is normal - Labs 09/23/16 05:30 09/23/16 05:30 Diabetes panel 09/23/16 Range/Units 05:30 Sodium 133 L (136-145) mEq/L Potassium 3.6 (3.5-4.5) mEq/L Chloride 103 (98-109) mEq/L Carbon Dioxide 27 (19-29) mEq/L BUN 14 (8-26) mg/dL Creatinine 0.62 L (0.72-1.25) mg/dL Glucose 89 (70-99) mg/dL Calcium 7.9 L (8.6-10.8) mg/dL Calcium panel 09/23/16 Range/Units 05:30 Calcium 7.9 L (8.6-10.8) mg/dL Phosphorus 2.9 (2.3-4.7) mg/dL Pituitary panel 09/23/16 Range/Units 05:30 Sodium 133 L (136-145) mEq/L Potassium 3.6 (3.5-4.5) mEq/L Chloride 103 (98-109) mEq/L Carbon Dioxide 27 (19-29) mEq/L BUN 14 (8-26) mg/dL Creatinine 0.62 L (0.72-1.25) mg/dL Glucose 89 (70-99) mg/dL Calcium 7.9 L (8.6-10.8) mg/dL Adrenal panel 09/23/16 Range/Units 05:30 Sodium 133 L (136-145) mEq/L Potassium 3.6 (3.5-4.5) mEq/L Chloride 103 (98-109) mEq/L Carbon Dioxide 27 (19-29) mEq/L BUN 14 (8-26) mg/dL Creatinine 0.62 L (0.72-1.25) mg/dL Glucose 89 (70-99) mg/dL Calcium 7.9 L (8.6-10.8) mg/dL - VTE Documentation of Mechanical Device: Intermittent pneumatic compression device Consult Discharge Plan - Plan Referrals: Jeff Goff DO [Primary Care Provider] - <Frances Sanders - Last Filed: 09/23/16 17:52> Date of Encounter: 09/23/16 - Assessment and Plan (1) Colonic stricture Current Visit: Yes Status: Resolved (2) DVT prophylaxis Current Visit: Yes Status: Acute (3) Diverticular disease Current Visit: Yes Status: Resolved Qualifiers: Diverticulosis site: diverticulosis of large intestine Diverticulosis bleeding: diverticulosis without bleeding Qualified Code(s): K57.30 - Diverticulosis of large intestine without perforation or abscess without bleeding (4) Restless leg syndrome Current Visit: Yes Status: Acute holding home medication (5) GERD (gastroesophageal reflux disease) Current Visit: Yes Status: Chronic PPI therapy Qualifiers: Esophagitis presence: esophagitis presence not specified Qualified Code(s) : K21.9 - Gastro-esophageal reflux disease without esophagitis (6) Hypertension Current Visit: Yes Status: Chronic SBP > 160, increase lopressor to 5 mg iv q6h Qualifiers: Hypertension type: essential hypertension Qualified Code(s): I10 - Essential (primary) hypertension (7) History of open sigmoidectomy Current Visit: Yes Status: Acute await return of bowel function having increased pain, add toradol npo, ok ice chips ngt to liws good uop prn pain control OOB to chair aggressive pulmonary toilet Subjective Patient reports: no new complaints, still having pain, no flatus, no bowel movement, afebrile Objective Vital Signs - Last 8 Hours Temp Pulse Resp BP Pulse Ox 09/23/16 15:18 97.9 F 76 16 165/89 94 09/23/16 11:04 98.0 F 74 12 125/76 92 Intake and Output 09/23/16 09/23/16 09/23/16 07:59 15:59 23:59 Intake Total 210 / 2106 100 / 100 Output Total 1050 / 1050 620 / 620 590 / 590 Balance 1056 / 1056 -520 / -520 -590 / -590 Intake: IV Fluids 2106 / 2106 100 / 100 0.9 % Sodium Chloride 1, 1000 / 1000 000 ML @ 100 mls/hr IVC . Q10H [facility] Rx#:[id number] Clinimix E 5%-15% 756 / 756 SOLUTION 2,000 ML @ 83.3 mls/hr IVC .Q24H [facility] with M.v.i. Adult 10 ml Rx#: [id number] Ofirmev 1,000 mg/100 ml 1 100 / 100 100 / 100 ,000 mg In 100 ml @ 400 mls/hr IVPB Q8HR [facility] Rx#: [id number] Intralipid 20% 250 ML @ 250 / 250 21 mls/hr IVPB DAILY@1700 [facility] Rx#:[id number] Oral 0 / 0 Output: Catheter 400 / 400 600 / 600 Gastric Drainage 650 / 650 550 / 550 Wound Drainage 20 / 20 40 / 40 RLQ 20 / 20 40 / 40 Other: Meal NPO NPO Percent of Meal Consumed 0% Weight 93.4 kg Blood Glucose* 115 126 128 Patient Weight 09/23/16 23:59 Weight 93.4 kg - General physical appearance well developed, well nourished, no distress - Eyes PERRL, normal ocular movement - ENT dry mucosa, atraumatic, normocephalic - Neck Neck exam: trachea midline - Respiratory normal expansion, normal respiratory effort - Cardiovascular Cardiovascular exam: Present: RRR - Abdomen Abdomen: Present: soft, tender. Absent: bowel sounds present - Incision Incision: Present: clean and dry, intact. Absent: draining - Genitourinary other (bond removed) - Integumentary no rash, no growths - Neurologic CN 2-12 grossly intact - Musculoskeletal normal posture - Psychiatric oriented to time, oriented to person, oriented to place, speech is normal, memory intact - Labs 09/23/16 05:30 09/23/16 05:30 Short CBC 09/23/16 Range/Units 05:30 WBC 8.6 (4.3-11.1) K/mcL Hgb 11.0 L (12.9-16.9) g/dL Hct 32.1 L (37.5-50.1) % Plt Count 150 (140-400) K/mcL Neutrophils # 6.0 (1.6-8.9) K/mcL BMP 09/23/16 Range/Units 05:30 Sodium 133 L (136-145) mEq/L Potassium 3.6 (3.5-4.5) mEq/L Chloride 103 (98-109) mEq/L Carbon Dioxide 27 (19-29) mEq/L BUN 14 (8-26) mg/dL Creatinine 0.62 L (0.72-1.25) mg/dL Glucose 89 (70-99) mg/dL Calcium 7.9 L (8.6-10.8) mg/dL Vital Signs Temp Pulse Resp BP Pulse Ox 09/23/16 15:18 97.9 F 76 16 165/89 94 09/23/16 11:04 98.0 F 74 12 125/76 92 09/23/16 08:20 98.1 F 77 16 149/88 93 09/23/16 04:51 98 F 72 18 119/74 93 09/23/16 00:32 98.1 F 74 19 111/73 94 09/22/16 20:20 98.2 F 67 21 120/78 92 Intake and Output 09/23/16 09/23/16 09/23/16 07:59 15:59 23:59 Intake Total 2106 / 2106 100 / 100 Output Total 1050 / 1050 620 / 620 590 / 590 Balance 1056 / 1056 -520 / -520 -590 / -590 Intake: IV Fluids 2106 / 2106 100 / 100 0.9 % Sodium Chloride 1, 1000 / 1000 000 ML @ 100 mls/hr IVC . Q10H [facility] Rx#:[id number] Clinimix E 5%-15% 756 / 756 SOLUTION 2,000 ML @ 83.3 mls/hr IVC .Q24H [facility] with M.v.i. Adult 10 ml Rx#: [id number] Ofirmev 1,000 mg/100 ml 1 100 / 100 100 / 100 ,000 mg In 100 ml @ 400 mls/hr IVPB Q8HR [facility] Rx#: [id number] Intralipid 20% 250 ML @ 250 / 250 21 mls/hr IVPB DAILY@1700 [facility] Rx#:[id number] Oral 0 / 0 Output: Catheter 400 / 400 600 / 600 Gastric Drainage 650 / 650 550 / 550 Wound Drainage 40 / 40 RLQ 40 / 40 Other: Meal NPO NPO Percent of Meal Consumed 0% Weight 93.4 kg Blood Glucose* 115 126 128 Patient Weight 09/23/16 23:59 Weight 93.4 kg - Attending Attestation I examined this patient and my medical decision-making was reviewed with the Resident Physician. I agree with the documented findings, disposition and treatment plan as described except to the extent set forth below.
[2016-09-23] MEDS ORDERED: Clinimix E 5%-15% SOLUTION 2,000 ML with MVI, adult with vitamin K 10 ML IVC SCH (17:00)
[2016-09-23] MEDS: 0.9 % Sodium Chloride 1,000 ML IVC SCH (17:18)
[2016-09-23] MEDS: Ketorolac 15 MG/ML VIAL IVP SCH ×2 (17:19→23:47)
[2016-09-24] MEDS: 0.9 % Sodium Chloride 1,000 ML IVC SCH ×2 (03:58→15:06)
[2016-09-24] MEDS: *HR* HYDROmorphone (PF) 1 MG/ML SYRINGE IVP PRN ×7 (04:33→19:55)
[2016-09-24 04:56] LABS: BUN/Creatinine Ratio 21 (6-26); Blood Urea Nitrogen 13 mg/dL (8-26); Calcium 8.1 mg/dL (8.6-10.8); Carbon Dioxide 25 mEq/L (19-29); Chloride 101 mEq/L (98-109); Glucose 97 mg/dL (70-99); Magnesium 1.3 mg/dL (1.6-2.6); Osmolality,Calculated 274 (280-300); Phosphorous 3.7 mg/dL (2.3-4.7); Potassium 3.5 mEq/L (3.5-4.5); Sodium 132 mEq/L (136-145); eGFR For African Americans > 60 (> 60); eGFR For Non-African Americans > 60 (> 60)
[2016-09-24] MEDS: *HR* Metoprolol 5 MG/5 ML VIAL IVP SCH ×4 (05:53→23:50)
[2016-09-24] MEDS: Ketorolac 15 MG/ML VIAL IVP SCH ×4 (05:53→23:50)
[2016-09-24] MEDS: *HR* Heparin 5,000 UNIT/ML VIAL SQ SCH ×2 (05:54→17:39)
[2016-09-24] MEDS: Pantoprazole 40 MG VIAL IVP SCH (07:47)
[2016-09-24] MEDS: Acetaminophen IV 1,000 MG/100 ML INFUS..BTL IVPB SCH ×3 (07:54→23:50)
[2016-09-24] MEDS ORDERED: Magnesium Sulfate 2 GM in D5% in Water 100 ML IVPB ONE (08:29)
--- NOTE | 2016-09-24 16:39 | General Surgery Progress Note ---
<Michelle Kendricknifer Adriane - Last Filed: 09/24/16 16:54> Date of Encounter: 09/24/16 Time of Encounter: 16:00 - Assessment and Plan (1) Colonic stricture Current Visit: Yes Status: Resolved Postoperative day #3 Open sigmoidectomy, takedown of splenic flexure, incidental appendectomy with Dr. Sanders Maintain bowel rest while were waiting return of bowel function NG tube to low intermittent wall suction Supportive care and pain control Continue TPN therapy D/C maintenance IV- total fluid rate will be 83 mL's per hour Increase activity as tolerated- ambulate hallways with assistance PPI therapy daily Incentive spirometer every 1 hour while awake Repeat a.m. labs Pathology pending (2) Diverticular disease Current Visit: Yes Status: Resolved Postoperative day #3 Open sigmoidectomy, takedown of splenic flexure, incidental appendectomy with Dr. Sanders Maintain bowel rest while were waiting return of bowel function NG tube to low intermittent wall suction Supportive care and pain control Continue TPN therapy D/C maintenance IV- total fluid rate will be 83 mL's per hour Increase activity as tolerated- ambulate hallways with assistance PPI therapy daily Incentive spirometer every 1 hour while awake Repeat a.m. labs Pathology pending Qualifiers: Diverticulosis site: diverticulosis of large intestine Diverticulosis bleeding: diverticulosis without bleeding Qualified Code(s): K57.30 - Diverticulosis of large intestine without perforation or abscess without bleeding (3) GERD (gastroesophageal reflux disease) Current Visit: Yes Status: Chronic PPI therapy daily Qualifiers: Esophagitis presence: esophagitis presence not specified Qualified Code(s) : K21.9 - Gastro-esophageal reflux disease without esophagitis (4) Hypertension Current Visit: Yes Status: Chronic Well-controlled Continue current regimen Qualifiers: Hypertension type: essential hypertension Qualified Code(s): I10 - Essential (primary) hypertension (5) Restless leg syndrome Current Visit: Yes Status: Acute (6) DVT prophylaxis Current Visit: Yes Status: Acute Heparin 5000 units subcutaneous twice daily for DVT prophylaxis EPCDs bilateral lower exremities for DVT prophylaxis Ambulate hallways TID with assistance (7) Hypomagnesemia Current Visit: Yes Status: Acute Replacement magnesium Repeat a.m. labs Subjective Patient reports: no new complaints, feels better, still having pain, pain is less, voiding w/o difficulty, no flatus, no bowel movement, afebrile Objective Vital Signs - Last 8 Hours Temp Pulse Resp BP Pulse Ox 09/24/16 14:47 97.7 F 59 16 139/83 95 09/24/16 10:53 97.5 F L 58 16 145/84 95 Intake and Output 09/24/16 09/24/16 09/24/16 07:59 15:59 23:59 Intake Total 1562 / 1562 1100 / 1100 Output Total 995 / 995 1445 / 1445 Balance 567 / 567 -345 / -345 Intake: IV Fluids 1562 / 1562 1100 / 1100 0.9 % Sodium Chloride 1, 633 / 633 1000 / 1000 000 ML @ 100 mls/hr IVC . Q10H [facility] Rx#:[id number] Clinimix E 5%-15% 579 / 579 SOLUTION 2,000 ML @ 83.3 mls/hr IVC .Q24H [facility] with M.v.i. Adult 10 ml Rx#: [id number] Ofirmev 1,000 mg/100 ml 1 100 / 100 100 / 100 ,000 mg In 100 ml @ 400 mls/hr IVPB Q8HR [facility] Rx#: [id number] Intralipid 20% 250 ML @ 250 / 250 21 mls/hr IVPB DAILY@1700 [facility] Rx#:[id number] Oral 0 / 0 0 / 0 Output: Urine 375 / 375 675 / 675 Gastric Tube Lavage 600 / 600 Amount Right Nare 600 / 600 Gastric Drainage 0 / 0 750 / 750 Wound Drainage 20 / 20 20 / 20 RLQ 20 / 20 20 / 20 Other: Meal NPO Percent of Meal Consumed 0% Weight 93.8 kg Blood Glucose* 122 129 111 Patient Weight 09/24/16 23:59 Weight 93.8 kg - General physical appearance well developed, well nourished, no distress - Eyes normal ocular movement - ENT dry mucosa, atraumatic, normocephalic - Neck Neck exam: trachea midline - Respiratory normal respiratory effort, clear to auscultation - Cardiovascular Cardiovascular exam: Present: RRR - Abdomen Abdomen: Present: soft, tender (expected post-operative tenderness), wound (NG tube to LIWS (750ml since midnight); ROSALVA drain to bulb suction (serousang, 50ml since midnight)) - Incision Incision: Present: clean and dry, intact - Neurologic CN 2-12 grossly intact - Psychiatric oriented to time, oriented to person, oriented to place, speech is normal, memory intact - Labs 09/23/16 05:30 09/24/16 04:29 Diabetes panel 09/24/16 Range/Units 04:29 Sodium 132 L (136-145) mEq/L Potassium 3.5 (3.5-4.5) mEq/L Chloride 101 (98-109) mEq/L Carbon Dioxide 25 (19-29) mEq/L BUN 13 (8-26) mg/dL Creatinine 0.62 L (0.72-1.25) mg/dL Glucose 97 (70-99) mg/dL Calcium 8.1 L (8.6-10.8) mg/dL Calcium panel 09/24/16 Range/Units 04:29 Calcium 8.1 L (8.6-10.8) mg/dL Phosphorus 3.7 (2.3-4.7) mg/dL Pituitary panel 09/24/16 Range/Units 04:29 Sodium 132 L (136-145) mEq/L Potassium 3.5 (3.5-4.5) mEq/L Chloride 101 (98-109) mEq/L Carbon Dioxide 25 (19-29) mEq/L BUN 13 (8-26) mg/dL Creatinine 0.62 L (0.72-1.25) mg/dL Glucose 97 (70-99) mg/dL Calcium 8.1 L (8.6-10.8) mg/dL Adrenal panel 09/24/16 Range/Units 04:29 Sodium 132 L (136-145) mEq/L Potassium 3.5 (3.5-4.5) mEq/L Chloride 101 (98-109) mEq/L Carbon Dioxide 25 (19-29) mEq/L BUN 13 (8-26) mg/dL Creatinine 0.62 L (0.72-1.25) mg/dL Glucose 97 (70-99) mg/dL Calcium 8.1 L (8.6-10.8) mg/dL - VTE Documentation of Mechanical Device: Intermittent pneumatic compression device Consult Discharge Plan - Plan Referrals: Jeff Goff DO [Primary Care Provider] - - Attending Attestation For this encounter, I have reviewed the [employer] or PA documentation, treatment plan, and medical decision making; and I have had face to face time with this patient. <DentonFrances tee Maile - Last Filed: 09/27/16 09:06> Date of Encounter: 09/24/16 - Assessment and Plan (1) Colonic stricture Current Visit: Yes Status: Resolved await return of bowel function continue TPN while pt npo prn pain control OOB to chair/ambulate aggressive pulmonary toilet continue ngt LIWS until return bowel function (2) DVT prophylaxis Current Visit: Yes Status: Acute (3) Diverticular disease Current Visit: Yes Status: Resolved Qualifiers: Diverticulosis site: diverticulosis of large intestine Diverticulosis bleeding: diverticulosis without bleeding Qualified Code(s): K57.30 - Diverticulosis of large intestine without perforation or abscess without bleeding (4) Restless leg syndrome Current Visit: Yes Status: Acute holding home medication (5) GERD (gastroesophageal reflux disease) Current Visit: Yes Status: Chronic Qualifiers: Esophagitis presence: esophagitis presence not specified Qualified Code(s) : K21.9 - Gastro-esophageal reflux disease without esophagitis (6) Hypertension Current Visit: Yes Status: Chronic Qualifiers: Hypertension type: essential hypertension Qualified Code(s): I10 - Essential (primary) hypertension (7) History of open sigmoidectomy Current Visit: Yes Status: Acute Subjective Patient reports: feels better, still having pain, pain is less, voiding w/o difficulty, no flatus, no bowel movement, afebrile Objective Vital Signs - Last 8 Hours Temp Pulse Resp BP Pulse Ox 09/27/16 06:54 98.0 F 64 18 133/82 94 09/27/16 03:52 97.9 F 70 20 158/94 92 Intake and Output 09/26/16 09/27/16 09/27/16 23:59 07:59 15:59 Intake Total 2170 / 2170 250 / 250 Output Total 820 / 820 1060 / 1060 Balance 1350 / 1350 -810 / -810 Intake: IV Fluids 2009 250 / 250 Clinimix E 5%-15% 2009 SOLUTION 2,000 ML @ 83.3 mls/hr IVC .Q24H [facility] with M.v.i. Adult 10 ml Rx#: [id number] Intralipid 20% 250 ML @ 250 / 250 21 mls/hr IVPB DAILY@1700 [facility] Rx#:[id number] Oral 160 / 160 0 / 0 Output: Urine 700 / 700 1025 / 1025 Wound Drainage 120 / 120 35 / 35 RLQ 120 / 120 35 / 35 Other: Meal Dinner Weight 94.6 kg Blood Glucose* 118 104 Patient Weight 09/27/16 23:59 Weight 94.6 kg - General physical appearance well developed, well nourished, no distress - Eyes normal ocular movement - ENT dry mucosa, atraumatic - Neck Neck exam: trachea midline - Respiratory normal expansion, clear to auscultation - Cardiovascular Cardiovascular exam: Present: RRR, no murmurs/rubs/gallops - Abdomen Abdomen: Present: soft, tender, wound. Absent: bowel sounds present - Incision Incision: Present: clean and dry, intact - Genitourinary normal penis with no external lesions - Integumentary no growths - Neurologic CN 2-12 grossly intact - Musculoskeletal normal posture - Psychiatric oriented to time, oriented to person, oriented to place, speech is normal, memory intact - Labs 09/25/16 03:40 09/27/16 04:09 Diabetes panel 09/27/16 Range/Units 04:09 Sodium 131 L (136-145) mEq/L Potassium 4.5 (3.5-4.5) mEq/L Chloride 100 (98-109) mEq/L Carbon Dioxide 25 (19-29) mEq/L BUN 14 (8-26) mg/dL Creatinine 0.64 L (0.72-1.25) mg/dL Glucose 92 (70-99) mg/dL Calcium 8.5 L (8.6-10.8) mg/dL Calcium panel 09/27/16 Range/Units 04:09 Calcium 8.5 L (8.6-10.8) mg/dL Phosphorus 4.2 (2.3-4.7) mg/dL Pituitary panel 09/27/16 Range/Units 04:09 Sodium 131 L (136-145) mEq/L Potassium 4.5 (3.5-4.5) mEq/L Chloride 100 (98-109) mEq/L Carbon Dioxide 25 (19-29) mEq/L BUN 14 (8-26) mg/dL Creatinine 0.64 L (0.72-1.25) mg/dL Glucose 92 (70-99) mg/dL Calcium 8.5 L (8.6-10.8) mg/dL Adrenal panel 09/27/16 Range/Units 04:09 Sodium 131 L (136-145) mEq/L Potassium 4.5 (3.5-4.5) mEq/L Chloride 100 (98-109) mEq/L Carbon Dioxide 25 (19-29) mEq/L BUN 14 (8-26) mg/dL Creatinine 0.64 L (0.72-1.25) mg/dL Glucose 92 (70-99) mg/dL Calcium 8.5 L (8.6-10.8) mg/dL - Attending Attestation I have personally performed a face to face evaluation on this patient. I have reviewed and agree with the care plan. History and Exam by me shows: await return bowel function after open sigmoidectomy
[2016-09-24] MEDS ORDERED: Clinimix E 5%-15% SOLUTION 2,000 ML with MVI, adult with vitamin K 10 ML IVC SCH (17:00)
[2016-09-25] MEDS: *HR* HYDROmorphone (PF) 1 MG/ML SYRINGE IVP PRN ×7 (03:43→23:42)
[2016-09-25 04:09] LABS: Basophils % 0.3 %; Eosinophils # 0.2 K/mcL (0.0-0.6); Eosinophils % 2.6 %; Hematocrit 31.5 % (37.5-50.1); Hemoglobin 10.8 g/dL (12.9-16.9); Immature Granulocytes % 0.3 % (0-4); Lymphocytes % 15.1 %; Magnesium 1.6 mg/dL (1.6-2.6); Mean Corpuscular HGB Conc 34.3 g/dL (31.6-35.5); Mean Corpuscular Hemoglobin 31.7 pg (28.0-33.3); Mean Corpuscular Volume 92.4 fL (83.0-100.0); Mean Platelet Volume 10.7 fL (9.4-12.4); Monocytes # 0.7 K/mcL (0.0-1.3); Monocytes % 9.8 %; Neutrophils # 4.9 K/mcL (1.6-8.9); Phosphorous 3.7 mg/dL (2.3-4.7); Platelet Count 175 K/mcL (140-400); Red Blood Count 3.41 M/mcL (4.19-5.50); Red Cell Distribution Width 13.2 % (11.5-14.5); Segmented Neutrophils % 71.9 %
[2016-09-25 04:10] LABS: BUN/Creatinine Ratio 22 (6-26); Blood Urea Nitrogen 13 mg/dL (8-26); Calcium 8.4 mg/dL (8.6-10.8); Carbon Dioxide 27 mEq/L (19-29); Chloride 101 mEq/L (98-109); Glucose 96 mg/dL (70-99); Osmolality,Calculated 278 (280-300); Potassium 3.7 mEq/L (3.5-4.5); Sodium 134 mEq/L (136-145); eGFR For African Americans > 60 (> 60); eGFR For Non-African Americans > 60 (> 60)
[2016-09-25] MEDS: Ketorolac 15 MG/ML VIAL IVP SCH ×3 (06:33→17:12)
[2016-09-25] MEDS: *HR* Heparin 5,000 UNIT/ML VIAL SQ SCH ×2 (06:33→17:12)
[2016-09-25] MEDS: *HR* Metoprolol 5 MG/5 ML VIAL IVP SCH ×4 (06:34→23:43)
[2016-09-25] MEDS: Acetaminophen IV 1,000 MG/100 ML INFUS..BTL IVPB SCH ×2 (08:15→16:15)
[2016-09-25] MEDS: Pantoprazole 40 MG VIAL IVP SCH (08:16)
--- NOTE | 2016-09-25 11:12 | General Surgery Progress Note ---
<Yoly Kendrick Adriane - Last Filed: 09/25/16 11:15> Date of Encounter: 09/25/16 Time of Encounter: 11:00 - Assessment and Plan (1) Colonic stricture Current Visit: Yes Status: Resolved Postoperative day #4 Open sigmoidectomy, takedown of splenic flexure, incidental appendectomy with Dr. Sanders Maintain bowel rest while were waiting return of bowel function NG tube to gravity (bond bag) Supportive care and pain control Continue TPN therapy at goal Increase activity as tolerated- ambulate hallways with assistance PPI therapy daily Incentive spirometer every 1 hour while awake Repeat a.m. labs Pathology reviewed- consistent with diverticular disease (2) Diverticular disease Current Visit: Yes Status: Resolved Postoperative day #4 Open sigmoidectomy, takedown of splenic flexure, incidental appendectomy with Dr. Sanders Maintain bowel rest while were waiting return of bowel function NG tube to gravity (bond bag) Supportive care and pain control Continue TPN therapy at goal Increase activity as tolerated- ambulate hallways with assistance PPI therapy daily Incentive spirometer every 1 hour while awake Repeat a.m. labs Pathology reviewed Qualifiers: Diverticulosis site: diverticulosis of large intestine Diverticulosis bleeding: diverticulosis without bleeding Qualified Code(s): K57.30 - Diverticulosis of large intestine without perforation or abscess without bleeding (3) GERD (gastroesophageal reflux disease) Current Visit: Yes Status: Chronic PPI therapy daily Qualifiers: Esophagitis presence: esophagitis presence not specified Qualified Code(s) : K21.9 - Gastro-esophageal reflux disease without esophagitis (4) Hypertension Current Visit: Yes Status: Chronic Well-controlled Continue current regimen Qualifiers: Hypertension type: essential hypertension Qualified Code(s): I10 - Essential (primary) hypertension (5) Restless leg syndrome Current Visit: Yes Status: Acute Hold meds while awaiting return of bowel function (6) DVT prophylaxis Current Visit: Yes Status: Acute Heparin 5000 units subcutaneous twice daily for DVT prophylaxis EPCDs bilateral lower exremities for DVT prophylaxis Ambulate hallways TID with assistance Subjective Patient reports: no new complaints, still having pain, voiding w/o difficulty, no flatus, no bowel movement, afebrile, other (complaint of sore throat) Objective Vital Signs - Last 8 Hours Temp Pulse Resp BP Pulse Ox 09/25/16 07:17 98.5 F 60 15 149/92 93 09/25/16 04:32 98.0 F 68 15 148/84 93 Intake and Output 09/24/16 09/25/16 09/25/16 23:59 07:59 15:59 Intake Total 1508.8 / 1508.8 100 / 100 350 / 350 Output Total 220 / 220 1325 / 1325 250 / 250 Balance 1288.8 / 1288.8 -1225 / -1225 100 / 100 Intake: IV Fluids 1508.8 / 1508.8 100 / 100 350 / 350 0.9 % Sodium Chloride 1, 0 / 0 000 ML @ 100 mls/hr IVC . Q10H [facility] Rx#:[id number] Clinimix E 5%-15% 1352 / 1352 SOLUTION 2,000 ML @ 83.3 mls/hr IVC .Q24H [facility] with M.v.i. Adult 10 ml Rx#: [id number] Ofirmev 1,000 mg/100 ml 1 100 / 100 100 / 100 100 / 100 ,000 mg In 100 ml @ 400 mls/hr IVPB Q8HR [facility] Rx#: [id number] Intralipid 20% 250 ML @ 56.8 / 56.8 250 / 250 21 mls/hr IVPB DAILY@1700 [facility] Rx#:[id number] Oral 0 / 0 0 / 0 0 / 0 Output: Urine 200 / 200 625 / 625 250 / 250 Gastric Drainage 700 / 700 0 / 0 Wound Drainage 20 / 20 0 / 0 0 / 0 RLQ 20 / 20 0 / 0 0 / 0 Other: Meal NPO NPO Percent of Meal Consumed 0% 0% Weight 94.2 kg Blood Glucose* 123 104 Patient Weight 09/25/16 23:59 Weight 94.2 kg - General physical appearance well developed, well nourished, no distress - Eyes normal ocular movement - ENT normal mucosa, atraumatic, normocephalic - Respiratory normal respiratory effort, clear to auscultation - Cardiovascular Cardiovascular exam: Present: RRR - Abdomen Abdomen: Present: bowel sounds present, soft, tender (expected post-operative tenderness), wound (NG tube to LIWS with 700ml of drainge documented since midnight; ROSALVA drain to bulb suction with minimal amount of serous drainage noted) - Incision Incision: Present: clean and dry, intact, serous (scant amount of drainage on dressing (dry), no active drainage noted) - Neurologic CN 2-12 grossly intact - Psychiatric oriented to time, oriented to person, oriented to place, speech is normal, memory intact - Labs 09/25/16 03:40 09/25/16 03:40 Diabetes panel 09/25/16 Range/Units 03:40 Sodium 134 L (136-145) mEq/L Potassium 3.7 (3.5-4.5) mEq/L Chloride 101 (98-109) mEq/L Carbon Dioxide 27 (19-29) mEq/L BUN 13 (8-26) mg/dL Creatinine 0.59 L (0.72-1.25) mg/dL Glucose 96 (70-99) mg/dL Calcium 8.4 L (8.6-10.8) mg/dL Calcium panel 09/25/16 09/25/16 Range/Units 03:40 03:40 Calcium 8.4 L (8.6-10.8) mg/dL Phosphorus 3.7 (2.3-4.7) mg/dL Pituitary panel 09/25/16 Range/Units 03:40 Sodium 134 L (136-145) mEq/L Potassium 3.7 (3.5-4.5) mEq/L Chloride 101 (98-109) mEq/L Carbon Dioxide 27 (19-29) mEq/L BUN 13 (8-26) mg/dL Creatinine 0.59 L (0.72-1.25) mg/dL Glucose 96 (70-99) mg/dL Calcium 8.4 L (8.6-10.8) mg/dL Adrenal panel 09/25/16 Range/Units 03:40 Sodium 134 L (136-145) mEq/L Potassium 3.7 (3.5-4.5) mEq/L Chloride 101 (98-109) mEq/L Carbon Dioxide 27 (19-29) mEq/L BUN 13 (8-26) mg/dL Creatinine 0.59 L (0.72-1.25) mg/dL Glucose 96 (70-99) mg/dL Calcium 8.4 L (8.6-10.8) mg/dL - VTE Documentation of Mechanical Device: Intermittent pneumatic compression device Consult Discharge Plan - Plan Referrals: Jeff Goff DO [Primary Care Provider] - - Attending Attestation For this encounter, I have reviewed the [employer] or PA documentation, treatment plan, and medical decision making; and I have had face to face time with this patient. <Frances Sanders Maile - Last Filed: 09/27/16 09:11> Date of Encounter: 09/25/16 - Assessment and Plan (1) Colonic stricture Current Visit: Yes Status: Resolved await return of flatus, continue npo, ngt decompression, TPN OOB and ambulate aggressive pulmonary toilet (2) DVT prophylaxis Current Visit: Yes Status: Acute (3) Diverticular disease Current Visit: Yes Status: Resolved Qualifiers: Diverticulosis site: diverticulosis of large intestine Diverticulosis bleeding: diverticulosis without bleeding Qualified Code(s): K57.30 - Diverticulosis of large intestine without perforation or abscess without bleeding (4) Restless leg syndrome Current Visit: Yes Status: Acute (5) GERD (gastroesophageal reflux disease) Current Visit: Yes Status: Chronic Qualifiers: Esophagitis presence: esophagitis presence not specified Qualified Code(s) : K21.9 - Gastro-esophageal reflux disease without esophagitis (6) Hypertension Current Visit: Yes Status: Chronic Qualifiers: Hypertension type: essential hypertension Qualified Code(s): I10 - Essential (primary) hypertension (7) History of open sigmoidectomy Current Visit: Yes Status: Acute Subjective Patient reports: no new complaints, still having pain, pain is less, voiding w/ o difficulty, no flatus, no bowel movement Objective Vital Signs - Last 8 Hours Temp Pulse Resp BP Pulse Ox 09/27/16 06:54 98.0 F 64 18 133/82 94 09/27/16 03:52 97.9 F 70 20 158/94 92 Intake and Output 09/26/16 09/27/16 09/27/16 23:59 07:59 15:59 Intake Total 2170 / 2170 250 / 250 Output Total 820 / 820 1060 / 1060 Balance 1350 / 1350 -810 / -810 Intake: IV Fluids 2009 250 / 250 Clinimix E 5%-15% 2009 SOLUTION 2,000 ML @ 83.3 mls/hr IVC .Q24H [facility] with M.v.i. Adult 10 ml Rx#: [id number] Intralipid 20% 250 ML @ 250 / 250 21 mls/hr IVPB DAILY@1700 [facility] Rx#:[id number] Oral 160 / 160 0 / 0 Output: Urine 700 / 700 1025 / 1025 Wound Drainage 120 / 120 35 / 35 RLQ 120 / 120 35 / 35 Other: Meal Dinner Weight 94.6 kg Blood Glucose* 118 104 Patient Weight 09/27/16 23:59 Weight 94.6 kg - General physical appearance well developed, well nourished, no distress - Eyes normal ocular movement - ENT atraumatic, normocephalic - Respiratory normal expansion, clear to auscultation - Cardiovascular Cardiovascular exam: Present: RRR - Abdomen Abdomen: Present: bowel sounds present, soft, tender - Incision Incision: Present: clean and dry, intact, serous - Integumentary no growths - Neurologic CN 2-12 grossly intact - Musculoskeletal normal posture - Psychiatric oriented to time, oriented to person, oriented to place, speech is normal, memory intact - Labs 09/25/16 03:40 09/27/16 04:09 Diabetes panel 09/27/16 Range/Units 04:09 Sodium 131 L (136-145) mEq/L Potassium 4.5 (3.5-4.5) mEq/L Chloride 100 (98-109) mEq/L Carbon Dioxide 25 (19-29) mEq/L BUN 14 (8-26) mg/dL Creatinine 0.64 L (0.72-1.25) mg/dL Glucose 92 (70-99) mg/dL Calcium 8.5 L (8.6-10.8) mg/dL Calcium panel 09/27/16 Range/Units 04:09 Calcium 8.5 L (8.6-10.8) mg/dL Phosphorus 4.2 (2.3-4.7) mg/dL Pituitary panel 09/27/16 Range/Units 04:09 Sodium 131 L (136-145) mEq/L Potassium 4.5 (3.5-4.5) mEq/L Chloride 100 (98-109) mEq/L Carbon Dioxide 25 (19-29) mEq/L BUN 14 (8-26) mg/dL Creatinine 0.64 L (0.72-1.25) mg/dL Glucose 92 (70-99) mg/dL Calcium 8.5 L (8.6-10.8) mg/dL Adrenal panel 09/27/16 Range/Units 04:09 Sodium 131 L (136-145) mEq/L Potassium 4.5 (3.5-4.5) mEq/L Chloride 100 (98-109) mEq/L Carbon Dioxide 25 (19-29) mEq/L BUN 14 (8-26) mg/dL Creatinine 0.64 L (0.72-1.25) mg/dL Glucose 92 (70-99) mg/dL Calcium 8.5 L (8.6-10.8) mg/dL - Attending Attestation I have personally performed a face to face evaluation on this patient. I have reviewed and agree with the care plan. History and Exam by me shows: s/p open sigmoidectomy, awaiting return of bowel function
[2016-09-25] MEDS ORDERED: Lidocaine Viscous Oral Soln 15 ML SOLUTION MM PRN (11:45)
[2016-09-25] MEDS ORDERED: Chloraseptic Spray 177 ML BOTTLE MM PRN (11:45)
[2016-09-25] MEDS ORDERED: Clinimix E 5%-15% SOLUTION 2,000 ML with MVI, adult with vitamin K 10 ML IVC SCH (17:00)
[2016-09-26] MEDS: *HR* HYDROmorphone (PF) 1 MG/ML SYRINGE IVP PRN ×9 (02:58→22:29)
[2016-09-26 05:53] LABS: Magnesium 1.5 mg/dL (1.6-2.6); Phosphorous 4.2 mg/dL (2.3-4.7)
[2016-09-26] MEDS: *HR* Metoprolol 5 MG/5 ML VIAL IVP SCH ×4 (06:38→23:49)
[2016-09-26] MEDS: *HR* Heparin 5,000 UNIT/ML VIAL SQ SCH ×2 (06:45→17:58)
[2016-09-26] MEDS: Pantoprazole 40 MG VIAL IVP SCH (09:29)
[2016-09-26] MEDS ORDERED: Magnesium Sulfate 2 GM in D5% in Water 100 ML IVPB ONE (10:56)
[2016-09-26] MEDS: Magnesium Oxide 400 MG TABLET PO SCH (11:34)
--- NOTE | 2016-09-26 11:41 | General Surgery Progress Note ---
<Adrian Haney - Last Filed: 09/26/16 11:39> Date of Encounter: 09/26/16 Time of Encounter: 11:10 - Assessment and Plan (1) Colonic stricture Current Visit: Yes Status: Resolved Postoperative day #5 open simoidectomy, takedown of splenic flexure, incidental appendectomy with Dr. Sanders Patient is tolerating liquid diet. Consider advancing to soft diet. Supportive care Pain control = Patient currently on Dilaudid 1mg IVP, consider switching to PO pain management Ambulate three times daily as tolerated with assistance PPI therapy daily Incentive spirometer 10x per hour a.m. CBC, BMP PPI therapy daily (2) Hypertension Current Visit: Yes Status: Chronic Asymptomatic. Continue Lopressor 5mg IVP q6hr Qualifiers: Hypertension type: essential hypertension Qualified Code(s): I10 - Essential (primary) hypertension (3) DVT prophylaxis Current Visit: Yes Status: Acute Heparin 5000 units subcutaneous twice daily for DVT prophylaxis Ambulate three times per day with assistance as tolerated. Subjective Patient reports: still having pain, pain is less, tolerating liquids well, voiding w/o difficulty, flatus, bowel movement, afebrile Objective Vital Signs - Last 8 Hours Temp Pulse Resp BP Pulse Ox 09/26/16 11:00 97.6 F 69 18 154/95 95 09/26/16 06:38 98.3 F 68 16 163/93 93 09/26/16 03:41 98.7 F 72 16 162/89 93 Intake and Output 09/25/16 09/26/16 09/26/16 23:59 07:59 15:59 Intake Total 2099 0 / 0 0 / 0 Output Total 805 / 805 1710 / 1710 620 / 620 Balance 1295 / 1295 -1710 / -1710 -620 / -620 Intake: IV Fluids 2099 / 2099 Clinimix E 5%-15% 1999 / 1999 SOLUTION 2,000 ML @ 83.3 mls/hr IVC .Q24H [facility] with M.v.i. Adult 10 ml Rx#: [id number] Ofirmev 1,000 mg/100 ml 1 100 / 100 ,000 mg In 100 ml @ 400 mls/hr IVPB Q8HR [facility] Rx#: [id number] Oral 0 / 0 0 / 0 0 / 0 Output: Urine 800 / 800 1175 / 1175 575 / 575 Gastric Drainage 500 / 500 Right Nare Wound Drainage RLQ Other: Meal NPO NPO Percent of Meal Consumed 0% # Voids 1 # Bowel Movements 0 Weight 93.3 kg Blood Glucose* 94 116 117 Patient Weight 09/26/16 23:59 Weight 93.3 kg - General physical appearance well developed, well nourished, no distress - Eyes normal ocular movement - ENT atraumatic, normocephalic, CN 2-12 grossly intact - Neck Neck exam: trachea midline - Respiratory normal expansion, normal respiratory effort, clear to auscultation - Cardiovascular Cardiovascular exam: Present: RRR, no murmurs/rubs/gallops - Abdomen Abdomen: Present: bowel sounds present, soft, tender (Pain is 4/10) - Incision Incision: Present: clean and dry, intact - Labs 09/25/16 03:40 09/25/16 03:40 Calcium panel 09/26/16 Range/Units 05:27 Phosphorus 4.2 (2.3-4.7) mg/dL - VTE Documentation of Mechanical Device: Intermittent pneumatic compression device Consult Discharge Plan - Plan Referrals: Jeff Goff DO [Primary Care Provider] - <Frances Sanders - Last Filed: 09/27/16 09:14> Date of Encounter: 09/26/16 - Assessment and Plan (1) Colonic stricture Current Visit: Yes Status: Resolved patient had flatus starting yday evening, start clears, ngt removed prn pain control OOB/ambulate aggressive pulmonary toilet gi/dvt prophylaxis will start home meds once tolerate po (2) DVT prophylaxis Current Visit: Yes Status: Acute (3) Diverticular disease Current Visit: Yes Status: Resolved Qualifiers: Diverticulosis site: diverticulosis of large intestine Diverticulosis bleeding: diverticulosis without bleeding Qualified Code(s): K57.30 - Diverticulosis of large intestine without perforation or abscess without bleeding (4) Restless leg syndrome Current Visit: Yes Status: Acute (5) GERD (gastroesophageal reflux disease) Current Visit: Yes Status: Chronic Qualifiers: Esophagitis presence: esophagitis presence not specified Qualified Code(s) : K21.9 - Gastro-esophageal reflux disease without esophagitis (6) Hypertension Current Visit: Yes Status: Chronic Qualifiers: Hypertension type: essential hypertension Qualified Code(s): I10 - Essential (primary) hypertension (7) History of open sigmoidectomy Current Visit: Yes Status: Acute Subjective Patient reports: no new complaints, still having pain, pain is less, flatus, no bowel movement Objective Vital Signs - Last 8 Hours Temp Pulse Resp BP Pulse Ox 09/27/16 06:54 98.0 F 64 18 133/82 94 09/27/16 03:52 97.9 F 70 20 158/94 92 Intake and Output 09/26/16 09/27/16 09/27/16 23:59 07:59 15:59 Intake Total 2170 / 2170 250 / 250 Output Total 820 / 820 1060 / 1060 Balance 1350 / 1350 -810 / -810 Intake: IV Fluids 2009 250 / 250 Clinimix E 5%-15% 2009 SOLUTION 2,000 ML @ 83.3 mls/hr IVC .Q24H [facility] with M.v.i. Adult 10 ml Rx#: [id number] Intralipid 20% 250 ML @ 250 / 250 21 mls/hr IVPB DAILY@1700 [facility] Rx#:[id number] Oral 160 / 160 0 / 0 Output: Urine 700 / 700 1025 / 1025 Wound Drainage 120 / 120 35 / 35 RLQ 120 / 120 35 / 35 Other: Meal Dinner Weight 94.6 kg Blood Glucose* 118 104 Patient Weight 09/27/16 23:59 Weight 94.6 kg - General physical appearance well developed, well nourished, no distress - Eyes PERRL, normal ocular movement - ENT normal mucosa, atraumatic, normocephalic - Neck Neck exam: trachea midline - Respiratory normal expansion, clear to auscultation - Cardiovascular Cardiovascular exam: Present: RRR - Abdomen Abdomen: Present: bowel sounds present, soft, tender (expected post op tenderness) - Incision Incision: Present: clean and dry, intact - Integumentary no rash, no growths - Neurologic CN 2-12 grossly intact - Musculoskeletal normal posture - Psychiatric oriented to time, oriented to person, oriented to place, speech is normal, memory intact - Labs 09/25/16 03:40 09/27/16 04:09 Diabetes panel 09/27/16 Range/Units 04:09 Sodium 131 L (136-145) mEq/L Potassium 4.5 (3.5-4.5) mEq/L Chloride 100 (98-109) mEq/L Carbon Dioxide 25 (19-29) mEq/L BUN 14 (8-26) mg/dL Creatinine 0.64 L (0.72-1.25) mg/dL Glucose 92 (70-99) mg/dL Calcium 8.5 L (8.6-10.8) mg/dL Calcium panel 09/27/16 Range/Units 04:09 Calcium 8.5 L (8.6-10.8) mg/dL Phosphorus 4.2 (2.3-4.7) mg/dL Pituitary panel 09/27/16 Range/Units 04:09 Sodium 131 L (136-145) mEq/L Potassium 4.5 (3.5-4.5) mEq/L Chloride 100 (98-109) mEq/L Carbon Dioxide 25 (19-29) mEq/L BUN 14 (8-26) mg/dL Creatinine 0.64 L (0.72-1.25) mg/dL Glucose 92 (70-99) mg/dL Calcium 8.5 L (8.6-10.8) mg/dL Adrenal panel 09/27/16 Range/Units 04:09 Sodium 131 L (136-145) mEq/L Potassium 4.5 (3.5-4.5) mEq/L Chloride 100 (98-109) mEq/L Carbon Dioxide 25 (19-29) mEq/L BUN 14 (8-26) mg/dL Creatinine 0.64 L (0.72-1.25) mg/dL Glucose 92 (70-99) mg/dL Calcium 8.5 L (8.6-10.8) mg/dL - Attending Attestation I examined this patient and my medical decision-making was reviewed with the Resident Physician. I agree with the documented findings, disposition and treatment plan as described except to the extent set forth below.
[2016-09-26] MEDS ORDERED: Clinimix E 5%-15% SOLUTION 2,000 ML with MVI, adult with vitamin K 10 ML IVC SCH (17:00)
[2016-09-27] MEDS: *HR* HYDROmorphone (PF) 1 MG/ML SYRINGE IVP PRN ×5 (00:31→11:03)
[2016-09-27 04:45] LABS: BUN/Creatinine Ratio 22 (6-26); Blood Urea Nitrogen 14 mg/dL (8-26); Calcium 8.5 mg/dL (8.6-10.8); Carbon Dioxide 25 mEq/L (19-29); Chloride 100 mEq/L (98-109); Glucose 92 mg/dL (70-99); Magnesium 1.6 mg/dL (1.6-2.6); Osmolality,Calculated 272 (280-300); Phosphorous 4.2 mg/dL (2.3-4.7); Potassium 4.5 mEq/L (3.5-4.5); Sodium 131 mEq/L (136-145); eGFR For African Americans > 60 (> 60); eGFR For Non-African Americans > 60 (> 60)
[2016-09-27] MEDS: *HR* Heparin 5,000 UNIT/ML VIAL SQ SCH ×2 (05:23→16:15)
[2016-09-27] MEDS: *HR* Metoprolol 5 MG/5 ML VIAL IVP SCH ×3 (05:23→16:14)
[2016-09-27] MEDS: Magnesium Oxide 400 MG TABLET PO SCH (08:42)
[2016-09-27] MEDS: Pantoprazole 40 MG VIAL IVP SCH (08:42)
[2016-09-27] MEDS: Gabapentin 400 MG CAPSULE PO SCH ×3 (11:03→20:30)
[2016-09-27] MEDS: rOPINIRole 1 MG TABLET PO SCH ×3 (11:03→20:30)
[2016-09-27] MEDS ORDERED: *HR* HYDROmorphone (PF) 1 MG/ML SYRINGE IVP PRN (11:12)
--- NOTE | 2016-09-27 11:52 | General Surgery Progress Note ---
<Adrian Haney - Last Filed: 09/27/16 12:47> Date of Encounter: 09/27/16 Time of Encounter: 11:30 - Assessment and Plan (1) Colonic stricture Current Visit: Yes Status: Resolved Postoperative day #5 open simoidectomy, takedown of splenic flexure, incidental appendectomy with Dr. Sanders Patient is tolerating clear diet. Advance to full liquid diet. Supportive care ROSALVA Drain care Pain management = Breakthrough Dilaudid, Ibuprofen n1bhofs, Percocet 10 q4 hours Ambulate three times daily as tolerated with assistance PPI therapy daily Incentive spirometer 10x per hour a.m. CBC, BMP (2) Hypertension Current Visit: No Status: Chronic Lisinopril/Hydrochlorothiazide 10-12.5mg PO daily Qualifiers: Hypertension type: essential hypertension Qualified Code(s): I10 - Essential (primary) hypertension (3) DVT prophylaxis Current Visit: Yes Status: Acute Heparin 5000 units subcutaneous twice daily for DVT prophylaxis Ambulate three times per day with assistance as tolerated. (4) Restless leg syndrome Current Visit: No Status: Acute Requip 1mg PO TID (5) Hypomagnesemia Current Visit: Yes Status: Acute Resolved Subjective Patient reports: no new complaints, feels better, still having pain, tolerating liquids well, voiding w/o difficulty, flatus, no bowel movement, afebrile Objective Vital Signs - Last 8 Hours Temp Pulse Resp BP Pulse Ox 09/27/16 06:54 98.0 F 64 18 133/82 94 09/27/16 03:52 97.9 F 70 20 158/94 92 Intake and Output 09/26/16 09/27/16 09/27/16 23:59 07:59 15:59 Intake Total 2170 / 2170 250 / 250 Output Total 820 / 820 1060 / 1060 500 / 500 Balance 1350 / 1350 -810 / -810 -500 / -500 Intake: IV Fluids 2009 250 / 250 Clinimix E 5%-15% 2009 SOLUTION 2,000 ML @ 83.3 mls/hr IVC .Q24H [facility] with M.v.i. Adult 10 ml Rx#: [id number] Intralipid 20% 250 ML @ 250 / 250 21 mls/hr IVPB DAILY@1700 [facility] Rx#:[id number] Oral 160 / 160 0 / 0 Output: Urine 700 / 700 1025 / 1025 500 / 500 Wound Drainage 120 / 120 35 / 35 RLQ 120 / 120 35 / 35 Other: Meal Dinner Weight 94.6 kg Blood Glucose* 118 104 Patient Weight 09/27/16 23:59 Weight 94.6 kg - General physical appearance well developed, well nourished, no distress - Eyes normal ocular movement - ENT atraumatic, normocephalic, CN 2-12 grossly intact - Neck Neck exam: trachea midline - Respiratory normal expansion, normal respiratory effort, clear to auscultation - Cardiovascular Cardiovascular exam: Present: RRR, no murmurs/rubs/gallops - Abdomen Abdomen: Present: bowel sounds present, soft, tender (as expected from surgery) , wound (ROSALVA tube with sanguineous drainage) Abdominal Tenderness: diffusely - Incision Incision: Present: clean and dry, intact - Labs 09/25/16 03:40 09/27/16 04:09 Diabetes panel 09/27/16 Range/Units 04:09 Sodium 131 L (136-145) mEq/L Potassium 4.5 (3.5-4.5) mEq/L Chloride 100 (98-109) mEq/L Carbon Dioxide 25 (19-29) mEq/L BUN 14 (8-26) mg/dL Creatinine 0.64 L (0.72-1.25) mg/dL Glucose 92 (70-99) mg/dL Calcium 8.5 L (8.6-10.8) mg/dL Calcium panel 09/27/16 Range/Units 04:09 Calcium 8.5 L (8.6-10.8) mg/dL Phosphorus 4.2 (2.3-4.7) mg/dL Pituitary panel 09/27/16 Range/Units 04:09 Sodium 131 L (136-145) mEq/L Potassium 4.5 (3.5-4.5) mEq/L Chloride 100 (98-109) mEq/L Carbon Dioxide 25 (19-29) mEq/L BUN 14 (8-26) mg/dL Creatinine 0.64 L (0.72-1.25) mg/dL Glucose 92 (70-99) mg/dL Calcium 8.5 L (8.6-10.8) mg/dL Adrenal panel 09/27/16 Range/Units 04:09 Sodium 131 L (136-145) mEq/L Potassium 4.5 (3.5-4.5) mEq/L Chloride 100 (98-109) mEq/L Carbon Dioxide 25 (19-29) mEq/L BUN 14 (8-26) mg/dL Creatinine 0.64 L (0.72-1.25) mg/dL Glucose 92 (70-99) mg/dL Calcium 8.5 L (8.6-10.8) mg/dL - VTE Documentation of Mechanical Device: Intermittent pneumatic compression device Consult Discharge Plan - Plan Referrals: Jeff Goff DO [Primary Care Provider] - <Nathaniel Gonzales - Last Filed: 09/28/16 08:15> Date of Encounter: 09/27/16 Objective Vital Signs - Last 8 Hours Temp Pulse Resp BP Pulse Ox 09/28/16 07:05 97.9 F 70 16 112/73 93 09/28/16 04:10 98.3 F 70 16 119/78 94 Intake and Output 09/27/16 09/28/16 09/28/16 23:59 07:59 15:59 Intake Total 120 / 120 250 / 250 Output Total 835 / 835 825 / 825 Balance -715 / -715 -575 / -575 Intake: IV Fluids 250 / 250 Intralipid 20% 250 ML @ 250 / 250 21 mls/hr IVPB DAILY@1700 [facility] Rx#:[id number] Oral 120 / 120 Output: Urine 800 / 800 825 / 825 Wound Drainage 35 / 35 0 / 0 RLQ 35 / 35 0 / 0 Other: Meal Dinner Stool Size Small Stool Consistency soft Stool Color Brown # Bowel Movements 1 Weight 93.9 kg Blood Glucose* 112 91 Patient Weight 09/28/16 23:59 Weight 93.9 kg - Labs 09/25/16 03:40 09/27/16 04:09 Calcium panel 09/28/16 Range/Units 04:00 Phosphorus 4.7 (2.3-4.7) mg/dL - Attending Attestation I examined this patient and my medical decision-making was reviewed with the Resident Physician. I agree with the documented findings, disposition and treatment plan as described except to the extent set forth below. I reviewed the above assessment and evaluation and agree with the above plan. TPN to be decreased to 50%. Continue to advance diet as tolerated will advance to full liquids. Continue out of bed and ambulation.
[2016-09-27] MEDS: *HR* OxyCODONE/APAP 5/325 TABLET PO SCH ×3 (12:51→20:30)
[2016-09-27] MEDS: Ibuprofen 800 MG TABLET PO SCH (16:14)
[2016-09-27] MEDS ORDERED: Clinimix E 5%-15% SOLUTION 2,000 ML with MVI, adult with vitamin K 10 ML IVC SCH (17:00)
[2016-09-28] MEDS: *HR* Metoprolol 5 MG/5 ML VIAL IVP SCH ×3 (00:04→11:50)
[2016-09-28] MEDS: Ibuprofen 800 MG TABLET PO SCH ×2 (00:04→08:25)
[2016-09-28] MEDS: *HR* OxyCODONE/APAP 5/325 TABLET PO SCH ×4 (00:04→11:55)
[2016-09-28 04:21] LABS: Magnesium 1.8 mg/dL (1.6-2.6); Phosphorous 4.7 mg/dL (2.3-4.7)
[2016-09-28] MEDS: *HR* Heparin 5,000 UNIT/ML VIAL SQ SCH (05:20)
[2016-09-28] MEDS: Gabapentin 400 MG CAPSULE PO SCH (08:24)
[2016-09-28] MEDS: Pantoprazole 40 MG VIAL IVP SCH (08:24)
[2016-09-28] MEDS: rOPINIRole 1 MG TABLET PO SCH (08:24)
[2016-09-28] MEDS: Magnesium Oxide 400 MG TABLET PO SCH (08:24)
[2016-09-28 11:06] VITALS: BP 119/73
--- NOTE | 2016-09-28 13:03 | Discharge Summary ---
<Adin Perales - Last Filed: 09/28/16 16:45> Date of Encounter: 09/28/16 Time of Encounter: 09:30 - Discharge Diagnosis (1) Colonic stricture Status: Resolved (2) DVT prophylaxis Status: Acute (3) History of open sigmoidectomy Status: Acute - Discharge Medications Prescriptions: OxyCODONE/APAP 10/325 [Percocet 10/325 MG] 1 each PO Q6HR PRN #52 tablet PRN Reason: Pain Docusate [Colace] 100 mg PO BID #30 capsule Home Medications: metroNIDAZOLE [Flagyl] 500 mg PO TID #30 tablet 11/21/14 [Rx] Amoxicillin/Clavulanate [Augmentin] 875 mg PO BIDWM 09/20/16 [History] Gabapentin [Neurontin] 800 mg PO TID 09/20/16 [History] Lisinopril/Hydrochlorothiazide [Zestoretic 10-12.5 mg Tablet] 1 each PO DAILY [History] Omeprazole [PriLOSEC] 40 mg PO DAILY 09/20/16 [History] rOPINIRole [Requip] 1 mg PO TID 09/20/16 [History] Docusate [Colace] 100 mg PO BID #30 capsule 09/28/16 [Rx] OxyCODONE/APAP 10/325 [Percocet 10/325 MG] 1 each PO Q6HR PRN #52 tablet [Rx] Allergies/Adverse Reactions: Allergies No Known Allergies Allergy (Verified 09/20/16 11:34) General Surgery Exam Initial Vital Signs Temp Pulse Resp BP Pulse Ox 97.3 F L 64 16 133/88 96 09/20/16 10:52 09/20/16 10:52 09/20/16 10:52 09/20/16 10:52 09/20/16 10:52 - General physical appearance well developed, well nourished, no distress - Eyes normal ocular movement - ENT atraumatic, normocephalic - Neck trachea midline - Respiratory normal expansion, normal respiratory effort, clear to auscultation - Cardiovascular Cardiovascular exam: Present: RRR - Abdomen Abdomen general surgery: Present: bowel sounds present, soft, non tender - Incision Incision: Present: draining (into ROSALVA drain), serosanguinous - Psychiatric Psychiatric general surgery: Present: appropriate, speech is normal Date of admission: 09/20/16 10:47 Primary care physician: Jeff Goff, Consults: 09/20/16 10:43 Consult to Nutrition [CONS] Routine Comment: Total fluid rate 100ml/hour MIV + TPN Consulting Provider: NUTRITION Reason for Dietary Consult: TPN Start and Manage 09/20/16 10:44 Consult to Invasive Line Access Team [CONS] Routine Reason for Consult: Picc Line Insertion Line Type: PICC PICC line indications: Parental nutrition 09/24/16 09:00 Consult to Physical Therapy [CONS] Routine Comment: Evaluate, develop and implement POC Reason for Consult: discharge planning OT [Consult to Occupational Therapy] [CONS] Routine Comment: Evaluate, develop and implement POC Reason for Consult: discharge planning Discharging clinician: Adin Perales Anticipated date of discharge: 09/28/16 - Patient Status Disposition: Home, Self-Care Condition: Good Functional capacity at discharge: independent ambulation Overall status at discharge: patient is progressing back to baseline - Discharge Instructions Instructions: Bowel Obstruction (DC) Follow Up With: Jeff Goff DO [Primary Care Provider] - Frances Sanders MD [Partnered Physician] - Additional Instructions: Follow up in 1 week for ROSALVA drain removal - Diet and Activity Activity: resume usual activities as tolerated Diet: advance to your usual diet - Hospital Course Hospital course: Mr. Bateman is a 60 year old male with PMH of diverticular disease who failed antibiotic therapy. He continued to have LLQ pain, especially with eating. CT showed sigmoid stricture due to recurrent diverticulitis. On 09/21/16, open simoidectomy, takedown of splenic flexure, incidental appendectomy was performed by Dr. Sanders without complication. The patient's bowel function was slow to return, but soon after a diet was initiated and NGT discontinued, the patient reported flatus and BM's. The patient continued to progress toward complication and was anxious to return home. His ROSALVA drain continued to have an output too high to remove before discharge, so he will follow up with Dr. Sandres in 1 week to have it removed. Time spent discussing smoking cessation with patient: 3 to 10 minutes - Time Spent with Patient Total time spent providing and/or coordinating discharge services: Less than 30 minutes Labs on day of discharge: Labs from last 24 hours 09/28/16 09/28/16 09/28/16 11:30 07:21 04:15 POC Glucose 105 H 91 H 94 H Phosphorus Magnesium 09/28/16 09/28/16 09/27/16 04:00 00:01 20:38 POC Glucose 93 H 112 H Phosphorus 4.7 Magnesium 1.8 09/27/16 16:56 POC Glucose 93 H Phosphorus Magnesium <Nathaniel Gonzales - Last Filed: 09/28/16 22:35> Date of Encounter: 09/28/16 General Surgery Exam Initial Vital Signs Temp Pulse Resp BP Pulse Ox 97.3 F L 64 16 133/88 96 09/20/16 10:52 09/20/16 10:52 09/20/16 10:52 09/20/16 10:52 09/20/16 10:52 Date of admission: 09/20/16 10:47 Primary care physician: Jeff Goff, Consults: 09/20/16 10:43 Consult to Nutrition [CONS] Routine Comment: Total fluid rate 100ml/hour MIV + TPN Consulting Provider: NUTRITION Reason for Dietary Consult: TPN Start and Manage 09/20/16 10:44 Consult to Invasive Line Access Team [CONS] Routine Reason for Consult: Picc Line Insertion Line Type: PICC PICC line indications: Parental nutrition 09/24/16 09:00 Consult to Physical Therapy [CONS] Routine Comment: Evaluate, develop and implement POC Reason for Consult: discharge planning OT [Consult to Occupational Therapy] [CONS] Routine Comment: Evaluate, develop and implement POC Reason for Consult: discharge planning - Hospital Course Hospital course: Mr. Bateman is a 60 year old male - Time Spent with Patient Total time spent providing and/or coordinating discharge services: Labs on day of discharge: Labs from last 24 hours 09/28/16 09/28/16 09/28/16 11:30 07:21 04:15 POC Glucose 105 H 91 H 94 H Phosphorus Magnesium 09/28/16 09/28/16 04:00 00:01 POC Glucose 93 H Phosphorus 4.7 Magnesium 1.8 - Attending Attestation I examined this patient and my medical decision-making was reviewed with the Resident Physician. I agree with the documented findings, disposition and treatment plan as described except to the extent set forth below. Review the above assessment and evaluation and agree with the above.
[2016-09-28] MEDS ORDERED: Clinimix E 5%-15% SOLUTION 2,000 ML with MVI, adult with vitamin K 10 ML IVC SCH (17:00)
[2016-09-29] MEDS ORDERED: Clinimix E 5%-15% SOLUTION 2,000 ML with MVI, adult with vitamin K 10 ML IVC SCH (17:00)
== END 2016-09-28 13:53 | disposition home or self-care (01) | DRG 329 ==
LOC: 3ANU
PROVIDERS: ADMIT Surgery; ATTEND Surgery

== ENCOUNTER 2018-12-08 08:59 | Observation (INO) ==
[2018-12-08] MEDS ORDERED: Aspirin 81 MG TAB.CHEW PO ONE (09:17)
[2018-12-08] MEDS ORDERED: GI Cocktail 40 ML EACH PO ONE (09:33)
[2018-12-08 09:34] LABS: Basophils % 0.3 %; Eosinophils % 0.1 %; Hematocrit 42.2 % (37.5-50.1); Hemoglobin 14.7 g/dL (12.9-16.9); Immature Granulocytes % 0.4 % (0-4); Lymphocytes % 8.6 %; Mean Corpuscular HGB Conc 34.8 g/dL (31.6-35.5); Mean Corpuscular Hemoglobin 32.2 pg (28.0-33.3); Mean Corpuscular Volume 92.3 fL (83.0-100.0); Mean Platelet Volume 10.1 fL (9.4-12.4); Monocytes # 0.9 K/mcL (0.0-1.3); Monocytes % 7.9 %; Neutrophils # 9.7 K/mcL (1.6-8.9); Platelet Count 257 K/mcL (140-400); Red Blood Count 4.57 M/mcL (4.19-5.50); Red Cell Distribution Width 12.7 % (11.5-14.5); Segmented Neutrophils % 82.7 %; White Blood Count 11.7 K/mcL (4.3-11.1)
[2018-12-08 09:54] LABS: BUN/Creatinine Ratio 8 (6-26); Blood Urea Nitrogen 7 mg/dL (8-23); Calcium 9.7 mg/dL (8.6-10.3); Carbon Dioxide 23 mEq/L (23-29); Chloride 92 mEq/L (98-107); Glucose 110 mg/dL (70-105); Osmolality,Calculated 255 (280-300); Sodium 123 mEq/L (136-145); eGFR For African Americans > 60 (> 60); eGFR For Non-African Americans > 60 (> 60)
[2018-12-08 10:02] LABS: Troponin I < 0.03 ng/mL (< 0.04)
[2018-12-08 10:33] LABS: Alanine Aminotransferase 20 Units/L (7-52); Albumin 4.6 g/dL (3.5-5.7); Albumin/Globulin Ratio 1.6 (1.1-2.2); Alkaline Phosphatase 77 Units/L (34-104); Aspartate Amino Transferase 22 Units/L (13-39); Bilirubin,Direct 0.2 mg/dL (0.0-0.2); Bilirubin,Indirect 0.8 mg/dL (0.0-1.2); Globulin 2.8 g/dL (2.4-3.5); Lipase 119 Units/L (11-82); Total Protein 7.4 g/dL (6.4-8.9)
[2018-12-08] MEDS ORDERED: 0.9 % Sodium Chloride 1,000 ML IVC ONE ×2 (10:48→11:15)
[2018-12-08] MEDS ORDERED: Morphine Sulfate 2 MG/ML SYRINGE IVP ONE (10:49)
[2018-12-08] MEDS ORDERED: Ondansetron 4 MG/2 ML VIAL IVP ONE (11:00)
[2018-12-08] MEDS ORDERED: Ondansetron 4 MG/2 ML VIAL IVP PRN (11:43)
[2018-12-08] MEDS ORDERED: Naloxone 0.4 MG/ML INJ IVP PRN (11:43)
[2018-12-08] MEDS: Gabapentin 400 MG CAPSULE PO SCH ×3 (11:45→20:10)
[2018-12-08] MEDS ORDERED: Ringers Solution, Lactated 1,000 ML IVC SCH (11:45)
[2018-12-08] MEDS ORDERED: *HR* LORazepam 2 MG/ML VIAL IVP PRN ×3 (14:53)
[2018-12-08] MEDS: rOPINIRole 1 MG TABLET PO SCH ×2 (15:04→20:10)
[2018-12-08 16:09] LABS: BUN/Creatinine Ratio 9 (6-26); Blood Urea Nitrogen 7 mg/dL (8-23); Calcium 9.1 mg/dL (8.6-10.3); Carbon Dioxide 28 mEq/L (23-29); Chloride 97 mEq/L (98-107); Glucose 101 mg/dL (70-105); Osmolality,Calculated 268 (280-300); Potassium 4.5 mEq/L (3.5-5.1); Sodium 130 mEq/L (136-145); eGFR For African Americans > 60 (> 60); eGFR For Non-African Americans > 60 (> 60)
[2018-12-08] MEDS: Folic Acid 1 MG TABLET PO SCH (17:32)
[2018-12-08] MEDS: Vitamin B Complex/Vit C/Vit E 1 EACH TABLET PO SCH (17:32)
[2018-12-08] MEDS: Thiamine (B-1) 100 MG TABLET PO SCH (17:32)
[2018-12-08] MEDS: D5% in 0.9% NACL 1,000 ML IVC SCH (19:31)
[2018-12-08] MEDS: Piperacillin/Tazobactam 3.375 GM in 0.9 % Sodium Chloride Mini Bag 100 ML IVPB SCH ×2 (20:10→23:02)
[2018-12-09 04:23] LABS: Hematocrit 35.4 % (37.5-50.1); Hemoglobin 12.3 g/dL (12.9-16.9); Mean Corpuscular HGB Conc 34.7 g/dL (31.6-35.5); Mean Corpuscular Hemoglobin 32.8 pg (28.0-33.3); Mean Corpuscular Volume 94.4 fL (83.0-100.0); Mean Platelet Volume 10.3 fL (9.4-12.4); Platelet Count 215 K/mcL (140-400); Red Blood Count 3.75 M/mcL (4.19-5.50); Red Cell Distribution Width 12.9 % (11.5-14.5); White Blood Count 7.7 K/mcL (4.3-11.1)
[2018-12-09 04:32] LABS: BUN/Creatinine Ratio 8 (6-26); Blood Urea Nitrogen 7 mg/dL (8-23); Calcium 8.5 mg/dL (8.6-10.3); Carbon Dioxide 23 mEq/L (23-29); Chloride 97 mEq/L (98-107); Glucose 102 mg/dL (70-105); Magnesium 1.9 mg/dL (1.6-2.6); Osmolality,Calculated 262 (280-300); Potassium 4.1 mEq/L (3.5-5.1); Sodium 127 mEq/L (136-145); eGFR For African Americans > 60 (> 60); eGFR For Non-African Americans > 60 (> 60)
[2018-12-09] MEDS: D5% in 0.9% NACL 1,000 ML IVC SCH (05:50)
[2018-12-09 08:05] LABS: Prothrombin Time 11.5 Seconds (9.4-12.1)
[2018-12-09] MEDS: Folic Acid 1 MG TABLET PO SCH (08:45)
[2018-12-09] MEDS: Vitamin B Complex/Vit C/Vit E 1 EACH TABLET PO SCH (08:45)
[2018-12-09] MEDS: Piperacillin/Tazobactam 3.375 GM in 0.9 % Sodium Chloride Mini Bag 100 ML IVPB SCH ×3 (08:46→19:46)
[2018-12-09] MEDS: Gabapentin 400 MG CAPSULE PO SCH ×3 (08:46→19:45)
[2018-12-09] MEDS: Thiamine (B-1) 100 MG TABLET PO SCH (08:46)
[2018-12-09] MEDS: rOPINIRole 1 MG TABLET PO SCH ×3 (08:46→20:14)
[2018-12-09] MEDS ORDERED: Ondansetron 4 MG/2 ML VIAL IVP ONE (13:55)
[2018-12-09] MEDS ORDERED: *HR* Labetalol 20 MG/4 ML SYRINGE IVP PRN (13:55)
[2018-12-09] MEDS ORDERED: *HR* Promethazine 25 MG/ML VIAL IVP PRN (13:55)
[2018-12-09] MEDS ORDERED: *HR* OxyCODONE Immed Rel 5 MG TABLET PO PRN (13:55)
[2018-12-09] MEDS ORDERED: *HR* HYDROmorphone (PF) 1 MG/ML SYRINGE IVP PRN (13:55)
[2018-12-09] MEDS ORDERED: *HR* Midazolam HCl 2 MG/2 ML VIAL ONE (14:03)
[2018-12-09] MEDS ORDERED: *HR* Propofol 200 MG/20 ML VIAL IVP ONE (14:03)
[2018-12-09] MEDS ORDERED: *HR* FentaNYL (PF) 100 MCG/2 ML VIAL ONE (14:03)
[2018-12-09] MEDS ORDERED: Lidocaine -MPF 2% 2 ML VIAL ONE (14:03)
[2018-12-09] MEDS ORDERED: *HR* Rocuronium Bromide 50 MG/5 ML VIAL ONE (14:04)
[2018-12-09] MEDS ORDERED: Bupivacaine/EPI 1:200k 0.5%PF 30 ML VIAL ONE (14:07)
[2018-12-09] MEDS ORDERED: Ondansetron 4 MG/2 ML VIAL ONE (14:13)
[2018-12-09] MEDS ORDERED: Lidocaine -MPF 1% 5 ML AMPUL ONE (14:13)
[2018-12-09] MEDS ORDERED: Dexamethasone 4 MG/ML VIAL ONE (14:13)
[2018-12-09] MEDS ORDERED: Neostigmine Methylsulfate 3 MG/3 ML SYRINGE ONE (15:12)
[2018-12-09] MEDS ORDERED: Ondansetron 4 MG/2 ML VIAL IVP PRN (17:20)
[2018-12-09] MEDS ORDERED: Naloxone 0.4 MG/ML INJ IVP PRN (17:20)
[2018-12-09] MEDS ORDERED: D5% in 0.9% NACL 1,000 ML IVC SCH (17:20)
[2018-12-09] MEDS ORDERED: *HR* LORazepam 2 MG/ML VIAL IVP PRN ×3 (17:20)
[2018-12-09] MEDS: *HR* Heparin 5,000 UNIT/ML VIAL SQ SCH (18:30)
[2018-12-10] MEDS: Piperacillin/Tazobactam 3.375 GM in 0.9 % Sodium Chloride Mini Bag 100 ML IVPB SCH ×2 (00:33→08:24)
[2018-12-10] MEDS: *HR* Heparin 5,000 UNIT/ML VIAL SQ SCH (03:49)
[2018-12-10 06:27] LABS: Hemoglobin 11.6 g/dL (12.9-16.9); Mean Corpuscular HGB Conc 34.1 g/dL (31.6-35.5); Mean Corpuscular Hemoglobin 33.5 pg (28.0-33.3); Mean Corpuscular Volume 98.3 fL (83.0-100.0); Mean Platelet Volume 10.6 fL (9.4-12.4); Platelet Count 228 K/mcL (140-400); Red Blood Count 3.46 M/mcL (4.19-5.50); Red Cell Distribution Width 12.7 % (11.5-14.5); White Blood Count 10.1 K/mcL (4.3-11.1)
[2018-12-10 07:38] LABS: Alanine Aminotransferase 38 Units/L (7-52); Albumin 3.5 g/dL (3.5-5.7); Albumin/Globulin Ratio 1.5 (1.1-2.2); Alkaline Phosphatase 53 Units/L (34-104); Aspartate Amino Transferase 48 Units/L (13-39); BUN/Creatinine Ratio 8 (6-26); Bilirubin,Total 0.7 mg/dL (0.3-1.0); Blood Urea Nitrogen 8 mg/dL (8-23); Calcium 8.6 mg/dL (8.6-10.3); Carbon Dioxide 24 mEq/L (23-29); Chloride 96 mEq/L (98-107); Globulin 2.3 g/dL (2.4-3.5); Glucose 157 mg/dL (70-105); Lipase 20 Units/L (11-82); Osmolality,Calculated 268 (280-300); Potassium 4.7 mEq/L (3.5-5.1); Sodium 128 mEq/L (136-145); Total Protein 5.8 g/dL (6.4-8.9); eGFR For African Americans > 60 (> 60); eGFR For Non-African Americans > 60 (> 60)
[2018-12-10] MEDS: rOPINIRole 1 MG TABLET PO SCH (08:26)
[2018-12-10] MEDS: Gabapentin 400 MG CAPSULE PO SCH (08:26)
[2018-12-10] MEDS ORDERED: Thiamine (B-1) 100 MG TABLET PO SCH (09:00)
[2018-12-10] MEDS ORDERED: Vitamin B Complex/Vit C/Vit E 1 EACH TABLET PO SCH (09:00)
[2018-12-10] MEDS ORDERED: Folic Acid 1 MG TABLET PO SCH (09:00)
[2018-12-10 11:14] VITALS: BP 151/89
== END 2018-12-10 12:17 | disposition home or self-care (01) ==
LOC: 3BNU 08:59 → EMEROOARM 08:59 → SUATTDRO 11:46 → 3BNU 12:08
PROVIDERS: ADMIT Internal Medicine; ATTEND Family Medicine